=== PATIENT | female | born 1960 | race Caucasian/White ===

== ENCOUNTER 2019-06-13 08:49 | Inpatient (IN) | payer BC, OTHER, SELFPAY ==
[2019-06-13 10:02] LABS: Absolute Lymphocytes (CBC) 0.6 K/uL (0.7-4.9); Basophils % 0.7 % (0-1.3); Hematocrit 34.8 % (36.0-45.0); Lymphocytes % 12.5 % (15.3-44.8); MPV 7.6 fL (7.6-11.3); RBC Red Blood Cell Count 3.84 M/uL (3.86-4.86)
[2019-06-13] MEDS ORDERED: ONDANSETRON 4 MG/2 ML VIAL ONE (10:04)
[2019-06-13] MEDS ORDERED: MORPHINE 4 MG/ML SYR ONE ×2 (10:04→12:02)
[2019-06-13 10:20] LABS: Albumin 3.1 g/dL (3.4-5.0); Bilirubin Direct 0.2 mg/dL (0-0.2); Bilirubin Total 0.5 mg/dL (0.2-1.0); Potassium 3.7 mmol/L (3.5-5.1); Protein, Total 7.8 g/dL (6.4-8.2)
--- NOTE | 2019-06-13 11:14 | RAD REPORT ---
EXAM DESCRIPTION: CTAbdomen Pelvis W Contrast - 06/13/2019 10:53 am CLINICAL HISTORY: Abdominal pain. ABD PAIN COMPARISON: No comparisons TECHNIQUE: Biphasic CT imaging of the abdomen and pelvis was performed with 100 ml non-ionic IV cont rast. All CT scans are performed using dose optimization technique as appropriate and may include automated exposure control or mA/KV adjustment according to patient size. FINDINGS: The lung bases are clear. The liver, spleen, pancreas, left adrenal gland and kidneys are within normal limits. 18 mm right adr enal nodule likely an adenoma. No bowel obstruction, free air, free fluid or abscess. Moderately thickened 8 cm length of sigmoid co veronica in the left lower quadrant is noted which demonstrates inflammatory changes in the surrounding fa t. Numerous diverticula are present in this region. Upstream retention of stool seen in the colon. No peridiverticular abscess seen. The appendix is normal. No evidence of significant lymphadenopathy. No suspicious bony findings. IMPRESSION: Moderate diverticulitis is suspected involving an 8 cm length of sigmoid colon in the le ft lower quadrant. No abscess is identified. After appropriate treatment, it is recommended the patie nt undergo a followup colonoscopy.
[2019-06-13] MEDS ORDERED: CIPROFLOXACIN 400mg IV 400 MG/200 ML BAG IV ONE (12:02)
[2019-06-13] MEDS ORDERED: METRONIDAZOLE 500mg IVPB 500 MG/100 ML BAG IV ONE (12:02)
--- NOTE | 2019-06-13 12:03 | ER ---
Nurse's Notes [facility] Name: Lucille Mortensen Age: 58 yrs Sex: Female : 1960 Arrival Date: 06/13/2019 Time: 08:51 Bed 7 Private MD: Diagnosis: Diverticulitis of large intestine without perforation or abscess without bleeding Presentation: 06/13 09:05 Presenting complaint: Patient states: Constipated 2 weeks ago, used suppositories and jl7 it resolved, 4 days ago started feeling constipated again then last night reports "I felt a pop near my bladder." and reports severe abdominal pain from belly button down since then. also reports pressure in the vagina. Transition of care: patient was not received from another setting of care. Onset of symptoms was June 10, 2019. Risk Assessment: Do you want to hurt yourself or someone else? Patient reports no desire to harm self or others. Initial Sepsis Screen: Does the patient meet any 2 criteria? No. Patient's initial sepsis screen is negative. Does the patient have a suspected source of infection? No. Patient's initial sepsis screen is negative. Care prior to arrival: None. 09:05 Method Of Arrival: Ambulatory jl7 09:05 Acuity: BARBER 3 jl7 Triage Assessment: 09:09 General: Appears in no apparent distress. uncomfortable, ill, well developed, Behavior jl7 is cooperative, appropriate for age, anxious. Pain: Complains of pain in suprapubic area, right lower quadrant and left lower quadrant Pain does not radiate. Pain currently is 10 out of 10 on a pain scale. Quality of pain is described as pressure, Pain began 2-3 days ago. Is continuous. Neuro: Level of Consciousness is awake, alert, obeys commands, Oriented to person, place, time, situation. Cardiovascular: Patient's skin is warm and dry. Respiratory: Airway is patent Respiratory effort is even, unlabored, Respiratory pattern is symmetrical, tachypnea. GI: Abdomen is flat, non-distended, Stools are reported to be constipated. Bowel sounds present X 4 quads. Abd is soft X 4 quads Abdomen is tender to palpation in suprapubic area, right upper quadrant, right lower quadrant and left lower quadrant Guarding noted Reports constipation. : Denies burning with urination. Derm: Skin is pink, warm \\T\\ dry. Historical: - Allergies: 09:09 Sulfa (Sulfonamide Antibiotics); jl7 09:09 Bactrim; jl7 - Home Meds: 09:09 Prozac Oral [Active]; Trazodone Oral [Active]; jl7 - PMHx: 09:09 Depression; jl7 - PSHx: 09:09 Appendectomy; jl7 - Immunization history:: Adult Immunizations unknown. - Social history:: Smoking status: Patient/guardian denies using tobacco, Patient uses alcohol, 2 "Weak" rum and cokes a night. - Ebola Screening: : No symptoms or risks identified at this time. Screenin:30 Abuse screen: Denies threats or abuse. Denies injuries from another. Nutritional jl7 screening: No deficits noted. Tuberculosis screening: No symptoms or risk factors identified. Fall Risk IV access (20 points). Total Crowley Fall Scale indicates No Risk (0-24 pts). Assessment: 09:10 General: See triage assessment. jl7 10:21 Reassessment: pt reports "I haven't peed since before 2 this morning. I feel like I jl7 need to go but I can't." Bladder scan done, 193 in bladder. 11:00 Reassessment: Patient appears in no apparent distress at this time. No changes from jl7 previously documented assessment. Patient and/or family updated on plan of care and expected duration. Pain level reassessed. Patient is alert, oriented x 3, equal unlabored respirations, skin warm/dry/pink. 12:00 Reassessment: Patient appears in no apparent distress at this time. Patient and/or jl7 family updated on plan of care and expected duration. Pain level reassessed. Patient is alert, oriented x 3, equal unlabored respirations, skin warm/dry/pink. Patient states symptoms have improved. 13:00 Reassessment: Patient appears in no apparent distress at this time. Patient and/or jl7 family updated on plan of care and expected duration. Pain level reassessed. Patient is alert, oriented x 3, equal unlabored respirations, skin warm/dry/pink. Vital Signs: 09:09 BP 148 / 91; Pulse 76; Resp 23 S; Temp 98(O); Pulse Ox 100% on R/A; Pain 10/10; jl7 10:30 BP 138 / 97; Pulse 69; Resp 16 S; Pulse Ox 100% on R/A; jl7 10:30 Pain 4/10; jl7 11:52 BP 129 / 78; Pulse 76; Resp 18; Pulse Ox 99% on R/A; Pain 4/10; em1 13:00 BP 135 / 87; Pulse 62; Resp 16 S; Pulse Ox 97% on R/A; jl7 ED Course: 08:51 Patient arrived in ED. as 08:54 Felicia Asher RN is Primary Nurse. jl7 08:56 Paul Chris PA is PHCP. jr8 08:56 Alexandr Hawley MD is Attending Physician. jr8 09:08 Triage completed. jl7 09:09 Arm band placed on right wrist. jl7 09:10 Patient has correct armband on for positive identification. Placed in gown. Bed in low jl7 position. Call light in reach. Side rails up X 1. Pulse ox on. NIBP on. 09:48 Radiology exam delayed due to lab results not completed at this time. (BUN/Creatinine). vm2 09:54 Initial lab(s) drawn, by de, sent to lab. Inserted saline lock: 20 gauge in right em1 antecubital area, using aseptic technique. Blood collected. 10:21 Bladder scan completed. 193. jl7 10:55 CT Abd/Pelvis - IV Contrast Only In Process Unspecified. EDMS 12:02 Milan De Luna DO is Hospitalizing Provider. jr8 13:30 Inserted saline lock: 22 gauge in left hand, using aseptic technique. jl7 13:57 No provider procedures requiring assistance completed. Patient admitted, IV remains in jl7 place. intact, No redness/swelling at site. Administered Medications: 10:10 Drug: Zofran 4 mg Route: IVP; Site: right antecubital; jl7 10:30 Follow up: Response: No adverse reaction; Nausea is decreased jl7 10:12 Drug: morphine 4 mg Route: IVP; Site: right antecubital; jl7 10:30 Follow up: Pain 4/10 Adult; Response: No adverse reaction; Pain is decreased jl7 12:05 Drug: morphine 4 mg Route: IVP; Site: right antecubital; jl7 12:10 Drug: Cipro 400 mg Volume: 200 ml; Route: IVPB; Infused Over: 60 mins; Site: right jl7 antecubital; 12:14 Drug: Flagyl 500 mg Volume: 100 ml; Route: IVPB; Rate: 200 ml/hr; Infused Over: 30 jl7 mins; Site: right antecubital; Outcome: 12:02 Decision to Hospitalize by Provider. lb 13:57 Admitted to Med/surg accompanied by tech, family with patient, via wheelchair, room jl7 430, with chart, Report called to FILI Cid 13:57 Condition: stable 13:57 Discharge instructions given to patient, Instructed on the need for admit, Demonstrated understanding of instructions. 14:25 Patient left the ED. sg Signatures: Dispatcher [facility] EDMS Shan Corado RN Rafia Haro Eric em1 Paul Chris, JOSE GUADALUPE PA jr8 Felicia Asher RN RN jl7 Jayleen Hoffman 2 Corrections: (The following items were deleted from the chart) 10:23 10:21 Reassessment: pt reports "I haven't peed since before 2 this morning. I feel like jl7 I need to go but I can't." Bladder scan done jl7
--- NOTE | 2019-06-13 12:03 | EDPHYS ---
Physician Documentation [facility] Name: Lucille Mortensen Age: 58 yrs Sex: Female : 1960 Arrival Date: 06/13/2019 Time: 08:51 Bed 7 Private MD: ED Physician Alexandr Hawley HPI: 06/13 11:57 This 58 yrs old Female presents to ER via Ambulatory with complaints of jr8 Abdominal Pain. 11:57 The patient presents with abdominal pain right lower quadrant, in the left lower jr8 quadrant. Onset: The symptoms/episode began/occurred acutely, yesterday. The symptoms do not radiate. Associated signs and symptoms: Pertinent positives: nausea. The symptoms are described as constant, crampy. Modifying factors: The symptoms are alleviated by nothing, the symptoms are aggravated by bowel movements. Severity of pain: At its worst the pain was moderate in the emergency department the pain is unchanged. The patient has not experienced similar symptoms in the past. The patient has not recently seen a physician. Stated that she had bout of constipation about one month ago. Took OTC medications and was fine. Started to have what she thought was constipation again about 4 days ago. [place] pop sensation in lower abdomen last night. Since then has had markedly increased pain in lower abdomen . Historical: - Allergies: 09:09 Sulfa (Sulfonamide Antibiotics); jl7 09:09 Bactrim; jl7 - Home Meds: 09:09 Prozac Oral [Active]; Trazodone Oral [Active]; jl7 - PMHx: 09:09 Depression; jl7 - PSHx: 09:09 Appendectomy; jl7 - Immunization history:: Adult Immunizations unknown. - Social history:: Smoking status: Patient/guardian denies using tobacco, Patient uses alcohol, 2 "Weak" rum and cokes a night. - Ebola Screening: : No symptoms or risks identified at this time. ROS: 11:57 Eyes: Negative for injury, pain, redness, and discharge, ENT: Negative for injury, jr8 pain, and discharge, Neck: Negative for injury, pain, and swelling, Cardiovascular: Negative for chest pain, palpitations, and edema, Respiratory: Negative for shortness of breath, cough, wheezing, and pleuritic chest pain, Back: Negative for injury and pain, MS/Extremity: Negative for injury and deformity, Skin: Negative for injury, rash, and discoloration, Neuro: Negative for headache, weakness, numbness, tingling, and seizure. 11:57 Abdomen/GI: Positive for abdominal pain, nausea, constipation, abdominal cramps, Negative for vomiting, diarrhea, abdominal distension, anorexia, dysphagia, hematemesis, black/tarry stool, rectal pain, rectal bleeding, bowel incontinence, flatulence. Exam: 11:57 Eyes: Pupils equal round and reactive to light, extra-ocular motions intact. Lids and jr8 lashes normal. Conjunctiva and sclera are non-icteric and not injected. Cornea within normal limits. Periorbital areas with no swelling, redness, or edema. ENT: Nares patent. No nasal discharge, no septal abnormalities noted. Tympanic membranes are normal and external auditory canals are clear. Oropharynx with no redness, swelling, or masses, exudates, or evidence of obstruction, uvula midline. Mucous membranes moist. Neck: Trachea midline, no thyromegaly or masses palpated, and no cervical lymphadenopathy. Supple, full range of motion without nuchal rigidity, or vertebral point tenderness. No Meningismus. Cardiovascular: Regular rate and rhythm with a normal S1 and S2. No gallops, murmurs, or rubs. Normal PMI, no JVD. No pulse deficits. Respiratory: Lungs have equal breath sounds bilaterally, clear to auscultation and percussion. No rales, rhonchi or wheezes noted. No increased work of breathing, no retractions or nasal flaring. Back: No spinal tenderness. No costovertebral tenderness. Full range of motion. Skin: Warm, dry with normal turgor. Normal color with no rashes, no lesions, and no evidence of cellulitis. MS/ Extremity: Pulses equal, no cyanosis. Neurovascular intact. Full, normal range of motion. Neuro: Awake and alert, GCS 15, oriented to person, place, time, and situation. Cranial nerves II-XII grossly intact. Motor strength 5/5 in all extremities. Sensory grossly intact. Cerebellar exam normal. Normal gait. 11:57 Abdomen/GI: Inspection: abdomen appears normal, Bowel sounds: active, all quadrants, Palpation: soft, in all quadrants, moderate abdominal tenderness, in the right lower quadrant and left lower quadrant, voluntary guarding, is elicited in the right lower quadrant and left lower quadrant, involuntary guarding, is not appreciated, no appreciated organomegaly, Indicators: McBurney's point is not tender, Wylie's sign is negative, Rovsing's sign is negative, Liver: tenderness, is not appreciated. Vital Signs: 09:09 BP 148 / 91; Pulse 76; Resp 23 S; Temp 98(O); Pulse Ox 100% on R/A; Pain 10/10; jl7 10:30 BP 138 / 97; Pulse 69; Resp 16 S; Pulse Ox 100% on R/A; jl7 10:30 Pain 4/10; jl7 11:52 BP 129 / 78; Pulse 76; Resp 18; Pulse Ox 99% on R/A; Pain 4/10; em1 13:00 BP 135 / 87; Pulse 62; Resp 16 S; Pulse Ox 97% on R/A; jl7 MDM: 08:56 Patient medically screened. jr8 12:01 Data reviewed: vital signs, nurses notes, lab test result(s), radiologic studies, CT jr8 scan. Data interpreted: Pulse oximetry: on room air is 99 %. Interpretation: normal. Counseling: I had a detailed discussion with the patient and/or guardian regarding: the historical points, exam findings, and any diagnostic results supporting the discharge/admit diagnosis, lab results, radiology results, the need for further work-up and treatment in the hospital. Physician consultation: Milan DeL una DO was called at 12:02, was contacted at 12:02, regarding admission, to the medical/surgical unit. consult, patient's condition, and will see patient in ED. 06/13 09:42 Order name: Basic Metabolic Panel; Complete Time: 06/13 09:42 Order name: CBC with Diff; Complete Time: :8 06/13 09:42 Order name: Creatinine for Radiology; Complete Time: :8 06/13 09:42 Order name: Hepatic Function; Complete Time: 06/13 09:42 Order name: Lipase; Complete Time: 06/13 11:09 Order name: Urine Dipstick--Ancillary (enter results); Complete Time: 13:08 em1 06/13 09:42 Order name: IV Saline Lock; Complete Time: 09:54 jr8 06/13 09:42 Order name: Labs collected and sent; Complete Time: 09:54 8 06/13 09:48 Order name: CT Abd/Pelvis - IV Contrast Only; Complete Time: 11:52 jr8 06/13 11:09 Order name: Urine Dipstick-Ancillary (obtain specimen); Complete Time: 11:09 em1 Administered Medications: 10:10 Drug: Zofran 4 mg Route: IVP; Site: right antecubital; jl7 10:30 Follow up: Response: No adverse reaction; Nausea is decreased jl7 10:12 Drug: morphine 4 mg Route: IVP; Site: right antecubital; jl7 10:30 Follow up: Pain 4/10 Adult; Response: No adverse reaction; Pain is decreased jl7 12:05 Drug: morphine 4 mg Route: IVP; Site: right antecubital; jl7 12:10 Drug: Cipro 400 mg Volume: 200 ml; Route: IVPB; Infused Over: 60 mins; Site: right jl7 antecubital; 12:14 Drug: Flagyl 500 mg Volume: 100 ml; Route: IVPB; Rate: 200 ml/hr; Infused Over: 30 jl7 mins; Site: right antecubital; Disposition: 14:48 Co-signature as Attending Physician, Alexandr Hawley MD. rn Disposition: 06/13/19 12:02 Hospitalization ordered by Milan De Luna for Inpatient Admission. Preliminary diagnosis is Diverticulitis of large intestine without perforation or abscess without bleeding. - Bed requested for Telemetry/MedSurg (Inpatient). - Status is Inpatient Admission. sg - Condition is Stable. - Problem is new. - Symptoms have improved. UTI on Admission? No Signatures: Dispatcher [employer] EDNikky Leo RN RN dw Shan Corado RN RN sg Alexandr Hawley MD MD rn Martinez, Eric em1 Paul Chris PA PA jr8 Felicia Asher RN RN jl7 Corrections: (The following items were deleted from the chart) 13:32 12:02 Hospitalization Ordered by Milan De Luna DO for Inpatient Admission. Preliminary dw diagnosis is Diverticulitis of large intestine without perforation or abscess without bleeding. Bed requested for Telemetry/MedSurg (Inpatient). Status is Inpatient Admission. Condition is Stable. Problem is new. Symptoms have improved. UTI on Admission? No. jr8 14:25 13:32 06/13/2019 12:02 Hospitalization Ordered by Milan De Luna DO for Inpatient sg Admission. Preliminary diagnosis is Diverticulitis of large intestine without perforation or abscess without bleeding. Bed requested for Telemetry/MedSurg (Inpatient). Status is Inpatient Admission. Condition is Stable. Problem is new. Symptoms have improved. UTI on Admission? No. dw
[2019-06-13 13:03] LABS: Urine Blood TRACE (NEG); Urine Glucose NEGATIVE (NEG); Urine Protein NEGATIVE (NEG)
--- NOTE | 2019-06-13 13:08 | P.HP ---
Certification for Inpatient Patient admitted to: Inpatient With expected LOS: >2 Midnights Patient will require the following post-hospital care: None Practitioner: I am a practitioner with admitting privileges, knowledge of patient current condition, hospital course, and medical plan of care. Services: Services provided to patient in accordance with Admission requirements found in Title 42 Section 412.3 of the Code of Federal Regulations Patient History Date of Service: 06/13/19 Primary Care Provider: Dr. Carlisle Reason for admission: Abdominal pain History of Present Illness: 58-year-old female with history of depression and colon polyps. Patient reported constipation about a month ago. This resolved. Then about 4 days ago she had some episode of constipation but also with abdominal pain. Abdominal pain was diffuse. She rated the pain about a 10/10. Her symptoms did not improve. She reported some chills but no fever. She also had nausea but no vomiting. She came to the ER for further evaluation. In the ER patient was evaluated. White count 5.0, hemoglobin 12. Platelet count 357. Sodium 135, potassium 3.7, BUN of 12, creatinine 0.8 with a GFR 62. Glucose 120. Lipase unremarkable. CT scan revealed moderate diverticulitis to the sigmoid region. No perforation or abscess noted. Patient was given IV antibiotic therapy and pain medication in the ER with some improvement. Patient was admitted for further evaluation and treatment. When I saw the patient ER, she appeared stable. Pain improved with IV pain medication. Patient reports having a colonoscopy about 10 years ago. She was told that she had colon polyps at that time. No mention of history of diverticulitis in the past. Home medications list reviewed: Yes - Past Medical/Surgical History Diabetic: No -: Depression -: Former tobacco use -: Colon polyps -: Appendectomy -: Foot surgery Psychosocial/ Personal History: Patient is single. She has 1 child. - Family History Family History: Reviewed- Non-Contributory - Social History Smoking Status: Former smoker Alcohol use: Yes CD- Drugs: No Caffeine use: Yes Place of Residence: Home Review of Systems General: Chills, As per HPI Eyes: Unremarkable ENT: Unremarkable Respiratory: Unremarkable Cardiovascular: Unremarkable Gastrointestinal: Nausea, Abdominal Pain, Constipation, As per HPI Genitourinary: Unremarkable Musculoskeletal: Unremarkable Integumentary: Unremarkable Neurological: Unremarkable Lymphatics: Unremarkable Physical Examination - Physical Exam General: Alert, In no apparent distress, Oriented x3, Cooperative HEENT: Atraumatic, Normocephalic, PERRLA, Mucous membr. moist/pink Neck: Supple Respiratory: Clear to auscultation bilaterally, Normal air movement Cardiovascular: Normal pulses, Regular rate/rhythm Gastrointestinal: Normal bowel sounds, Soft and benign, Non-distended, No masses , No rebound, No guarding, Tenderness (Abdominal pain noted to lower abdominal region.) Musculoskeletal: No erythema, No tenderness, No warmth Integumentary: No tenderness/swelling, No erythema, No warmth, No cyanosis Neurological: Normal speech, Normal strength at 5/5 x4 extr, Normal tone, Normal affect - Studies Laboratory Data (last 24 hrs) 06/13/19 09:50: Creatinine 0.89 06/13/19 09:50: WBC 5.0, Hgb 12.0, Hct 34.8 L, Plt Count 357 06/13/19 09:50: Sodium 135 L, Potassium 3.7, BUN 12, Creatinine 0.92, Glucose 120 H, Total Bilirubin 0.5, AST 15, ALT 14, Alkaline Phosphatase 100, Lipase 105 Assessment and Plan - Plan Impression: Abdominal pain secondary to acute sigmoid diverticulitis Hyponatremia likely from dehydration Depression Plan: Abdominal pain secondary to acute sigmoid diverticulitis: Patient will be admitted for further evaluation and treatment. Will obtain blood cultures. Will continue IV Cipro and Flagyl. Will have pharmacy monitor and adjust appropriately. Will start DVT prophylaxis-Lovenox. Will provide IV pain medication and IV fluids. Will keep the patient NPO at this time. Will consult surgery to further evaluate and monitor. Anticipate improvement. Once the patient's pain has significantly improved then will transition to fluid diet then advance as tolerated. Patient will require colonoscopy in 4-6 weeks after hospitalization. Anticipate improvement over the next 3-5 days. Hyponatremia likely from dehydration: Will continue with IV fluids. Will monitor and address appropriately. Replacement protocol in place. Depression: Will continue with her oral medication once taking good oral intake. Discharge Plan: Home Plan to discharge in: Greater than 2 days - Advance Directives Does patient have a Living Will: No Does patient have a Durable POA for Healthcare: No - Code Status/Comfort Care Code Status Assessed: Yes (Patient is full code) Time Spent Managing Pts Care (In Minutes): 55
[2019-06-13] MEDS ORDERED: ONDANSETRON 4 MG/2 ML VIAL IV PRN (13:56)
[2019-06-13] MEDS ORDERED: ACETAMINOPHEN 500 MG TAB PO PRN (13:56)
[2019-06-13] MEDS ORDERED: MORPHINE 2 MG/ML SYR IV PRN (13:56)
[2019-06-13] MEDS ORDERED: ACETAMINOPHEN 650MG/RECT SUPP PR PRN (13:56)
[2019-06-13] MEDS: NA CHLORIDE 0.9% 1,000 ML IV SCH (14:25)
[2019-06-13 14:47] VITALS: BMI 23.0
[2019-06-13] MEDS: METRONIDAZOLE 500mg IVPB 500 MG/100 ML BAG IV SCH (16:17)
[2019-06-13] MEDS: CIPROFLOXACIN 400mg IV 400 MG/200 ML BAG IV SCH (21:27)
[2019-06-14] MEDS: NA CHLORIDE 0.9% 1,000 ML IV SCH ×2 (00:34→08:59)
[2019-06-14] MEDS: METRONIDAZOLE 500mg IVPB 500 MG/100 ML BAG IV SCH ×3 (04:45→16:20)
[2019-06-14 06:46] LABS: Absolute Lymphocytes (CBC) 1.3 K/uL (0.7-4.9); Hematocrit 30.9 % (36.0-45.0); Lymphocytes % 34.5 % (15.3-44.8); RBC Red Blood Cell Count 3.31 M/uL (3.86-4.86)
[2019-06-14 07:03] LABS: Magnesium 2.2 mg/dL (1.8-2.4); Potassium 3.6 mmol/L (3.5-5.1)
[2019-06-14] MEDS: ENOXAPARIN 40 MG/0.4 ML SQ SCH (08:56)
[2019-06-14] MEDS: CIPROFLOXACIN 400mg IV 400 MG/200 ML BAG IV SCH ×2 (08:56→20:04)
--- NOTE | 2019-06-14 12:37 | P.PN ---
Subjective Date of Service: 06/14/19 Primary Care Provider: Dr. Carlisle Chief Complaint: Abdominal pain Subjective: Improving, Doing well, Other (No significant abdominal pain noted today. Passage of gas noted. No BM.) Physical Examination - Vital Signs Temperature: 98.2 F Blood Pressure: 122/72 Pulse: 65 Respirations: 16 Pulse Ox (%): 99 - Physical Exam General: Alert, In no apparent distress, Oriented x3, Cooperative HEENT: Atraumatic Neck: Supple Respiratory: Clear to auscultation bilaterally, Normal air movement Cardiovascular: Normal pulses, Regular rate/rhythm Gastrointestinal: Normal bowel sounds, Soft and benign, Non-distended, No tenderness, No masses, No rebound, No guarding Musculoskeletal: No erythema, No tenderness, No warmth Neurological: Normal speech, Normal strength at 5/5 x4 extr, Normal tone, Normal affect Assessment & Plan Discharge Plan: Home Plan to discharge in: 24 Hours Physician Review Additional Text: Impression: Abdominal pain secondary to acute sigmoid diverticulitis Hyponatremia likely from dehydration Depression Plan: Abdominal pain secondary to acute sigmoid diverticulitis: Patient continues to improve. Continue IV Cipro and Flagyl. Will advance diet to clear liquid. Will advance slowly to GI soft. Anticipate discharge within the next 24-48 hr. Encourage ambulation. Patient will require colonoscopy in 4-6 weeks after hospitalization. Hyponatremia likely from dehydration: Will continue with IV fluids. Will monitor and address appropriately. Replacement protocol in place. Depression: Restart home medication. Time Spent Managing Pts Care (In Minutes): 55
[2019-06-14] MEDS: NACHLORIDE 0.45% 1,000 ML IV SCH ×2 (13:26→23:00)
[2019-06-14] MEDS ORDERED: POTASSIUM CL SA 10 MEQ TAB PO ONE (14:54)
--- NOTE | 2019-06-14 16:47 | CON ---
Reason For Consultation: Acute sigmoid diverticulitis. History Of Present Illness: Patient is a 58-year-old female, who presents with 4 to 5 day history of diffuse abdominal pain associated with constipation and now the pain was on the left side. She had some chills but no fever. No blood in her stool. No dysuria or hematuria. No sore throat, runny no se, cough, headaches, or dizziness. No chest pain. No fever or chills. She did have a similar epis ode in April, was treated with antibiotics. She has not recently had a colonoscopy, she was advi sed for that and she has not followed up. family history of colorectal malignancy. Review of Systems: Otherwise unremarkable. Past Medical History: Rheumatoid arthritis. Depression. Past Surgical History: Appendectomy. Please note patient did have colonoscopy about 10 years ago. Had polyps. Allergies: SHE IS ALLERGIC TO SULFA. Family History: Significant for breast cancer. Cancer in a brother of unknown type. Heart disease in the father. Physical Examination: Vital Signs: Stable. She is afebrile. She is awake, alert, oriented x3. Head and Neck: Cranial nerves 2 through 12 are grossly within normal limits. No neck masses. No JV D. Throat clear. Neck is supple. Chest: Clear. Heart: S1, S2. Abdomen: Soft, nondistended. Positive bowel sounds. Minimal tenderness in the left lower quadrant. No rebound, rigidity, or guarding. Extremities: Adequately perfused. Nontender. Neuro: Nonfocal. Laboratory Data: White count on admission was 5 with a left shift. Today is 3.8 with neutrophil per cent of 46. Chemistry reviewed, essentially unremarkable today. Procalcitonin was less than 0.[address] of the abdomen and pelvis reviewed, shows 8 cm length of sigmoid colon in the left lower quadrant with inflammatory changes in the surrounding fat. There is no obstruction, free air or fluid or absc ess. No significant lymphadenopathy. Assessment: Acute sigmoid diverticulitis. Recommendations: IV antibiotics currently. Then, oral antibiotics for 2 weeks and then colonoscopy in 4 to 6 weeks and then a referral to a colorectal surgeon for segmental colectomy. Plan of care discussed in detail with the patient. 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 /MODL Voice ID: [id number] Report ID: [id number]
[2019-06-14] MEDS ORDERED: FLUOXETINE 10 MG CAP PO SCH (21:00)
[2019-06-14] MEDS ORDERED: TRAZODONE 50 MG TABLET PO SCH (21:00)
[2019-06-15] MEDS: METRONIDAZOLE 500mg IVPB 500 MG/100 ML BAG IV SCH ×2 (00:29→07:58)
[2019-06-15] MEDS: NACHLORIDE 0.45% 1,000 ML IV SCH (00:32)
[2019-06-15] MEDS ORDERED: LEVOTHYROXINE SOD 0.075 MG TAB PO SCH (06:30)
[2019-06-15 06:36] LABS: Absolute Lymphocytes (CBC) 1.7 K/uL (0.7-4.9); Basophils % 1.3 % (0-1.3); Hematocrit 31.5 % (36.0-45.0); Lymphocytes % 46.1 % (15.3-44.8); MPV 7.9 fL (7.6-11.3); RBC Red Blood Cell Count 3.42 M/uL (3.86-4.86)
[2019-06-15 06:54] LABS: Magnesium 2.4 mg/dL (1.8-2.4); Potassium 3.6 mmol/L (3.5-5.1)
[2019-06-15] MEDS ORDERED: POTASSIUM CL SA 10 MEQ TAB PO ONE (07:18)
[2019-06-15] MEDS: ENOXAPARIN 40 MG/0.4 ML SQ SCH (07:58)
[2019-06-15 08:04] VITALS: O2SAT 96
[2019-06-15 08:15] VITALS: BP 133/78; TEMP 97.8
--- NOTE | 2019-06-15 08:37 | P.DS ---
Admission Date: 06/13/19 Discharge Date: 06/15/19 Primary Care Provider: Dr. Carlisle Disposition: ROUTINE DISCHARGE Discharge Condition: GOOD Reason for Admission: Abdominal pain Consultations: Surgery-Dr. Jain Procedures: CT scan: FINDINGS: The lung bases are clear. The liver, spleen, pancreas, left adrenal gland and kidneys are within normal limits. 18 mm right adrenal nodule likely an adenoma. No bowel obstruction, free air, free fluid or abscess. Moderately thickened 8 cm length of sigmoid colon in the left lower quadrant is noted which demonstrates inflammatory changes in the surrounding fat. Numerous diverticula are present in this region. Upstream retention of stool seen in the colon. No peridiverticular abscess seen. The appendix is normal. No evidence of significant lymphadenopathy. No suspicious bony findings. IMPRESSION: Moderate diverticulitis is suspected involving an 8 cm length of sigmoid colon in the left lower quadrant. No abscess is identified. Medical Problem List: Abdominal pain secondary to acute recurrent sigmoid diverticulitis Hyponatremia likely from dehydration 18 mm right adrenal nodule likely benign adenoma Depression Hypothyroidism Anemia likely dilutional Brief History of Present Illness: 58-year-old female with history of depression and colon polyps. Patient reported constipation about a month ago. This resolved. Then about 4 days ago she had some episode of constipation but also with abdominal pain. Abdominal pain was diffuse. She rated the pain about a 10/10. Her symptoms did not improve. She reported some chills but no fever. She also had nausea but no vomiting. She came to the ER for further evaluation. In the ER patient was evaluated. White count 5.0, hemoglobin 12. Platelet count 357. Sodium 135, potassium 3.7, BUN of 12, creatinine 0.8 with a GFR 62. Glucose 120. Lipase unremarkable. CT scan revealed moderate diverticulitis to the sigmoid region. No perforation or abscess noted. Patient was given IV antibiotic therapy and pain medication in the ER with some improvement. Patient was admitted for further evaluation and treatment. When I saw the patient ER, she appeared stable. Pain improved with IV pain medication. Patient reports having a colonoscopy about 10 years ago. She was told that she had colon polyps at that time. Patient reported history of diverticulitis in the past. Hospital Course: Patient presented with abdominal pain. CT revealed moderate diverticulitis involving 8 cm length of sigmoid colon in the left lower quadrant. No abscess identified. Patient was admitted for further evaluation and treatment. Patient seen and evaluated by surgery. Patient reported history of diverticulitis in the past. Patient did well during the course of her stay with IV fluids and antibiotic therapy. With improvement, her diet was advanced. At discharge she is without any significant abdominal pain, nausea vomiting. At discharge she will continue with a GI soft diverticular diet. Patient will continue with Cipro 500 mg twice daily and Flagyl 500 mg 3 times a day for 2 weeks. Patient will also be given stool softener-docusate 100 mg daily. Recommend follow up with surgery in 1-2 weeks to follow up this hospitalization. Patient will require colonoscopy with a GI consultation in 4-6 weeks. Due to her recurrent diverticulitis and age, surgery of recommended the possibility of colectomy with colorectal surgery in the future. Patient understands plan of care. Incidental finding of 18 mm right adrenal nodule likely benign adenoma noted on CT scan. This can be followed up by her PCP. Patient with hyponatremia likely from dehydration. This improved with IV fluids. Patient with mild anemia. This is likely dilutional in nature. Recommend to recheck lab-CBC in 2-4 weeks to monitor progress. Patient will have colonoscopy in 4-6 weeks. Patient with underlying depression. At discharge she will continue with her medications-Prozac 60 mg daily and trazodone 50 mg daily Patient with hypothyroidism. At discharge she will continue with her medication -levothyroxine 150 mcg daily. Vital Signs/Physical Exam: Temp Pulse Resp BP Pulse Ox 97.8 F 67 16 133/78 96 06/15/19 08:00 06/15/19 08:00 06/15/19 08:00 06/15/19 08:00 06/15/19 08:00 General: Alert, In no apparent distress, Oriented x3, Cooperative HEENT: Atraumatic Neck: Supple Respiratory: Clear to auscultation bilaterally, Normal air movement Cardiovascular: Normal pulses, Regular rate/rhythm Gastrointestinal: Normal bowel sounds, Soft and benign, Non-distended, No tenderness, No masses, No rebound, No guarding Musculoskeletal: No erythema, No tenderness, No warmth Integumentary: No tenderness/swelling, No erythema, No warmth, No cyanosis Neurological: Normal speech, Normal strength at 5/5 x4 extr, Normal tone, Normal affect Laboratory Data at Discharge: WBC 3.6 K/uL (4.3-10.9) L 06/15/19 05:52 Hgb 10.9 g/dL (12.0-15.0) L 06/15/19 05:52 Hct 31.5 % (36.0-45.0) L 06/15/19 05:52 Plt Count 317 K/uL (152-406) 06/15/19 05:52 Sodium 141 mmol/L (136-145) 06/15/19 05:52 Potassium 3.6 mmol/L (3.5-5.1) 06/15/19 05:52 BUN 4 mg/dL (7-18) L 06/15/19 05:52 Creatinine 0.72 mg/dL (0.55-1.3) 06/15/19 05:52 Glucose 98 mg/dL (74-106) 06/15/19 05:52 Magnesium 2.4 mg/dL (1.8-2.4) 06/15/19 05:52 Total Bilirubin 0.5 mg/dL (0.2-1.0) 06/13/19 09:50 AST 15 U/L (15-37) 06/13/19 09:50 ALT 14 U/L (12-78) 06/13/19 09:50 Alkaline Phosphatase 100 U/L (45-117) 06/13/19 09:50 Lipase 105 U/L (73-393) 06/13/19 09:50 Home Medications: Fluoxetine HCl [Prozac*] 60 mg PO BEDTIME 06/13/19 Levothyroxine Sodium 150 mcg PO 0600 06/13/19 Trazodone HCl 50 mg PO BEDTIME 06/13/19 Ciprofloxacin HCl [Cipro 500 MG Tablet] 500 mg PO BID #28 tab 06/15/19 Docusate [Colace Cap*] 100 mg PO DAILY #30 cap 06/15/19 metroNIDAZOLE [Flagyl] 500 mg PO Q8H #42 tablet 06/15/19 New Medications: Ciprofloxacin HCl [Cipro 500 MG Tablet] 500 mg PO BID #28 tab Docusate [Colace Cap*] 100 mg PO DAILY #30 cap metroNIDAZOLE [Flagyl] 500 mg PO Q8H #42 tablet Patient Discharge Instructions: 1. Recommend follow up with her PCP in 1-2 weeks to follow up hospitalization. 2. Patient presented with abdominal pain. CT revealed moderate diverticulitis involving 8 cm length of sigmoid colon in the left lower quadrant. No abscess identified. Patient was admitted for further evaluation and treatment. Patient seen and evaluated by surgery. Patient reported history of diverticulitis in the past. Patient did well during the course of her stay with IV fluids and antibiotic therapy. With improvement, her diet was advanced. At discharge she is without any significant abdominal pain, nausea vomiting. At discharge she will continue with a GI soft diverticular diet. Patient will continue with Cipro 500 mg twice daily and Flagyl 500 mg 3 times a day for 2 weeks. Patient will also be given stool softener-docusate 100 mg daily. Recommend follow up with surgery in 1-2 weeks to follow up this hospitalization. Patient will require colonoscopy with a GI consultation in 4-6 weeks. Due to her recurrent diverticulitis and age, surgery of recommended the possibility of colectomy with colorectal surgery in the future. Patient understands plan of care. 3. Incidental finding of 18 mm right adrenal nodule likely benign adenoma noted on CT scan. This can be followed up by her PCP. 4. Patient with hyponatremia likely from dehydration. This improved with IV fluids. 5. Patient with mild anemia. This is likely dilutional in nature. Recommend to recheck lab-CBC in 2-4 weeks to monitor progress. Patient will have colonoscopy in 4-6 weeks. 6. Patient with underlying depression. At discharge she will continue with her medications -Prozac 60 mg daily and trazodone 50 mg daily. 7. Patient with hypothyroidism. At discharge she will continue with her medication- levothyroxine 150 mcg daily. Diet: GI soft diverticular diet Activity: Ad jagdeep Time spent managing pt's care (in minutes): 55
[2019-06-15] MEDS: CIPROFLOXACIN 400mg IV 400 MG/200 ML BAG IV SCH (08:47)
[2019-06-15] MEDS ORDERED: DOCUSATE NA 100 MG CAP PO SCH (09:00)
[2019-06-15 12:15] LABS: Platelet Estimate ADEQ
[2019-06-15 12:16] LABS: Blood Morphology Comment NOT SEEN (NOT SEEN)
--- NOTE | 2019-06-15 12:19 | PN ---
Date of Progress Note: 06/15/2019 Patient is awake and alert. No complaints. Vital signs stable, afebrile. Patient is tolerating a l ow-fiber diet. Abdomen is completely benign. Assessment: Acute sigmoid diverticulitis. Recommendations: Patient cleared for discharge. Follow up with the GI service for outpatient colono scopy in 4 to 6 weeks and I would recommend that she would get a segmental colon resection. Primary care discussed with Dr. De Luna. TIN/JUAN ALBERTO Voice ID: [id number] Report ID: [id number]
== END 2019-06-15 11:35 | disposition home or self-care (01) | DRG 392 ==
LOC: ER 08:49 → ERHOLD 12:58 → 4TH 13:54
PROVIDERS: ADMIT Family Medicine; ATTEND Family Medicine
DX: K57.32 Diverticulitis of large intestine without perforation or abscess without bleeding (principal); E87.1 Hypo-osmolality and hyponatremia; E86.0 Dehydration; D35.01 Benign neoplasm of right adrenal gland; F32.9 Major depressive disorder, single episode, unspecified; E03.9 Hypothyroidism, unspecified; D64.9 Anemia, unspecified; Z88.2 Allergy status to sulfonamides
CPT/HCPCS: 36415; 74177; 80048; 80076; 81003; 83690; 83735; 84145; 85025; 87040; 96374; 96375; 99285; J0744; J1650; J2270; J2405; J7030; Q9967

== ENCOUNTER 2019-10-20 14:40 | Emergency (ER) | payer BC ==
[2019-10-20] MEDS ORDERED: CIPROFLOXACIN 400mg IV 400 MG/200 ML BAG IV ONE (16:43)
[2019-10-20] MEDS ORDERED: MORPHINE 2 MG/ML SYR ONE ×2 (16:43→19:55)
[2019-10-20] MEDS ORDERED: ONDANSETRON 4 MG/2 ML VIAL ONE (16:43)
[2019-10-20] MEDS ORDERED: NA CHLORIDE 0.9% 1,000 ML ONE (16:43)
[2019-10-20] MEDS ORDERED: METRONIDAZOLE 500mg IVPB 500 MG/100 ML BAG IV ONE (16:43)
[2019-10-20 17:51] LABS: Absolute Lymphocytes (CBC) 1.3 K/uL (0.7-4.9); Basophils % 0.7 % (0-1.3); Hematocrit 33.1 % (36.0-45.0); Lymphocytes % 28.7 % (15.3-44.8); MPV 7.7 fL (7.6-11.3)
[2019-10-20 17:52] LABS: Albumin 2.7 g/dL (3.4-5.0); Bilirubin Direct 0.1 mg/dL (0-0.2); Bilirubin Total 0.4 mg/dL (0.2-1.0); Potassium 3.2 mmol/L (3.5-5.1); Protein, Total 7.3 g/dL (6.4-8.2)
[2019-10-20] MEDS ORDERED: NS KCL 20MEQ 1,000 ML IV ONE (19:10)
--- NOTE | 2019-10-20 19:29 | EDPHYS ---
Physician Documentation [facility] Name: Lucille Mortensen Age: 58 yrs Sex: Female : 1960 Arrival Date: 10/20/2019 Time: 14:42 Bed 7 Private MD: Nhan Soliz ED Physician Britton Oliveira HPI: 10/19 16:32 This 58 yrs old Female presents to ER via Ambulatory with complaints of Post gautam Surgical Pain, Rectal Pain. 16:32 The patient presents to the emergency department with pain in the rectal area. gautam 16:33 The patient presents with abdominal pain in the lower abdomen, in the left lower gautam quadrant, abdominal distention in the upper abdomen, in the lower abdomen. Onset: The symptoms/episode began/occurred 3 day(s) ago. Onset: The symptoms/episode began/occurred 3 day(s) ago. Context: the patient is post surgical, on October 14, 2019. Modifying factors: The symptoms are alleviated by remaining still, The symptoms are aggravated by movement. Modifying factors: The symptoms are alleviated by nothing, the symptoms are aggravated by movement, nothing. pressure, touching the area, walking. Historical: - Allergies: 14:50 Bactrim; ss 14:50 Sulfa (Sulfonamide Antibiotics); ss - PMHx: 14:50 Depression; ss - PSHx: 14:50 Appendectomy; colon resection; ss - Immunization history:: Adult Immunizations up to date. - Social history:: Smoking status: Patient denies any tobacco usage or history of. - Family history:: not pertinent. ROS: 16:33 Constitutional: Negative for fever, chills, and weight loss, Eyes: Negative for injury, gautam pain, redness, and discharge, ENT: Negative for injury, pain, and discharge, Neck: Negative for injury, pain, and swelling, Cardiovascular: Negative for chest pain, palpitations, and edema, Respiratory: Negative for shortness of breath, cough, wheezing, and pleuritic chest pain, Back: Negative for injury and pain, : Negative for injury, bleeding, discharge, and swelling, MS/Extremity: Negative for injury and deformity, Skin: Negative for injury, rash, and discoloration, Neuro: Negative for headache, weakness, numbness, tingling, and seizure, Psych: Negative for depression, anxiety, suicide ideation, homicidal ideation, and hallucinations, Allergy/Immunology: Negative for hives, rash, and allergies, Endocrine: Negative for neck swelling, polydipsia, polyuria, polyphagia, and marked weight changes, Hematologic/Lymphatic: Negative for swollen nodes, abnormal bleeding, and unusual bruising. 16:33 Abdomen/GI: Positive for abdominal pain, of the left lower quadrant. Exam: 16:33 Constitutional: This is a well developed, well nourished patient who is awake, alert, gautam and in no acute distress. Head/Face: Normocephalic, atraumatic. Eyes: Pupils equal round and reactive to light, extra-ocular motions intact. Lids and lashes normal. Conjunctiva and sclera are non-icteric and not injected. Cornea within normal limits. Periorbital areas with no swelling, redness, or edema. ENT: Nares patent. No nasal discharge, no septal abnormalities noted. Tympanic membranes are normal and external auditory canals are clear. Oropharynx with no redness, swelling, or masses, exudates, or evidence of obstruction, uvula midline. Mucous membranes moist. Neck: Trachea midline, no thyromegaly or masses palpated, and no cervical lymphadenopathy. Supple, full range of motion without nuchal rigidity, or vertebral point tenderness. No Meningismus. Chest/axilla: Normal chest wall appearance and motion. Nontender with no deformity. No lesions are appreciated. Cardiovascular: Regular rate and rhythm with a normal S1 and S2. No gallops, murmurs, or rubs. Normal PMI, no JVD. No pulse deficits. Respiratory: Lungs have equal breath sounds bilaterally, clear to auscultation and percussion. No rales, rhonchi or wheezes noted. No increased work of breathing, no retractions or nasal flaring. Back: No spinal tenderness. No costovertebral tenderness. Full range of motion. Female : Normal external genitalia. Skin: Warm, dry with normal turgor. Normal color with no rashes, no lesions, and no evidence of cellulitis. MS/ Extremity: Pulses equal, no cyanosis. Neurovascular intact. Full, normal range of motion. Neuro: Awake and alert, GCS 15, oriented to person, place, time, and situation. Cranial nerves II-XII grossly intact. Motor strength 5/5 in all extremities. Sensory grossly intact. Cerebellar exam normal. Normal gait. Psych: Awake, alert, with orientation to person, place and time. Behavior, mood, and affect are within normal limits. 16:33 Abdomen/GI: Inspection: distension, that is moderate, Bowel sounds: active, Palpation: moderate abdominal tenderness, in the umbilical area, left upper quadrant and left lower quadrant, Liver: no appreciated palpable abnormalities, Hernia: not appreciated. Vital Signs: 14:48 BP 113 / 90; Pulse 84; Resp 20; Temp 99.0; Pulse Ox 100% on R/A; Weight 62.6 kg; Height ss 5 ft. 6 in. (167.64 cm); Pain 8/10; 17:33 BP 133 / 74; Pulse 63; Resp 18; Pulse Ox 99% on R/A; Pain 10/10; em 19:08 BP 130 / 83; Pulse 78; Resp 18; Pulse Ox 99% on R/A; Pain 7/10; em 20:56 BP 115 / 63; Pulse 64; Resp 18; Pulse Ox 95% on R/A; tl2 14:48 Body Mass Index 22.27 (62.60 kg, 167.64 cm) MDM: 15:36 Patient medically screened. [facility] 16:33 Data reviewed: vital signs, nurses notes, lab test result(s), EKG, radiologic studies. [facility] 10/19 16:31 Order name: Basic Metabolic Panel; Complete Time: 18:01 [facility] 10/19 16:31 Order name: CBC with Diff [facility] 10/19 16:31 Order name: Creatinine for Radiology; Complete Time: 18:01 [facility] 10/19 16:31 Order name: Hepatic Function; Complete Time: 18:01 [facility] 10/19 16:31 Order name: Lipase; Complete Time: 18:01 [facility] 10/19 16:31 Order name: Urine Culture [facility] 10/19 16:31 Order name: CT Abd/Pelvis - PO and IV Contrast [facility] 10/19 17:44 Order name: Urine Dipstick--Ancillary (enter results) 10/19 17:55 Order name: CBC Smear Scan [facility] 10/19 16:31 Order name: IV Saline Lock; Complete Time: 17:17 [facility] 10/19 16:31 Order name: Labs collected and sent; Complete Time: 17:17 [facility] 10/19 16:31 Order name: Urine Dipstick-Ancillary (obtain specimen); Complete Time: 17:17 gautam Administered Medications: 17:35 Drug: NS 0.9% 1000 ml Route: IV; Rate: 1 bolus; Site: left antecubital; em 18:47 Follow up: IV Status: Completed infusion; IV Intake: 1000ml em 17:35 Drug: Zofran (Ondansetron) 4 mg Route: IVP; Site: left antecubital; em 18:47 Follow up: Response: No adverse reaction em 17:37 Drug: morphine 2 mg Route: IVP; Site: left antecubital; em 18:47 Follow up: Response: No adverse reaction; Marked relief of symptoms; Pain is decreased em 17:41 Drug: Flagyl 500 mg Volume: 100 ml; Route: IVPB; Rate: 200 ml/hr; Infused Over: 30 em mins; Site: left antecubital; 18:40 Follow up: Response: No adverse reaction; IV Status: Completed infusion; IV Intake: sv 100ml 19:03 Drug: Cipro 400 mg Volume: 200 ml; Route: IVPB; Infused Over: 60 mins; Site: right em antecubital; 20:00 Follow up: IV Status: Completed infusion tl2 19:56 Drug: morphine 2 mg Route: IVP; Site: left antecubital; sg 20:40 Follow up: Response: No adverse reaction; RASS: Alert and Calm (0) tl2 20:20 Drug: NS 0.9% with KCl 20 mEq/L 1000 ml Route: IV; Rate: 125 ml/hr; Site: left tl2 antecubital; 21:13 Follow up: IV Status: Infusion continued upon transfer tl2 20:20 Drug: Zosyn 3.375 grams Route: IVPB; Infused Over: 60 mins; Site: left antecubital; tl2 21:13 Follow up: IV Status: Infusion continued upon transfer tl2 21:12 Drug: morphine 4 mg Route: IVP; Site: left antecubital; tl2 21:14 Follow up: Response: No adverse reaction; Medication administered at discharge. tl2 Disposition: 10/20/19 19:28 Transfer ordered to Other Acute Care Facility. Diagnosis is Abdominal tenderness - bilateral pelvic abscesse s/p bowel resection. - Reason for transfer: Higher level of care. - Accepting physician is hyun mcclellan. - Condition is Stable. - Problem is new. - Symptoms have improved. Signatures: Dispatcher [employer] Shan Sandoval RN RN Britton Blank MD MD cha Munoz, Edgar, RN RN Bhavana Dickens RN RN ss Tova Morelos RN RN tl2 Audra Mathews RN sv Corrections: (The following items were deleted from the chart) 19:57 19:28 10/20/2019 19:28 Transfer ordered to [facility]. Diagnosis is Abdominal gautam tenderness - bilateral pelvic abscesse s/p bowel resection. Reason for transfer: Higher level of care. Accepting physician is hyun mcclellan. Condition is Stable. Problem is new. Symptoms have improved. gautam 21:22 19:57 10/20/2019 19:28 Transfer ordered to Other Acute Care Facility. Diagnosis is sg Abdominal tenderness - bilateral pelvic abscesse s/p bowel resection. Reason for transfer: Higher level of care. Accepting physician is hyun mcclellan. Condition is Stable. Problem is new. Symptoms have improved. gautam
--- NOTE | 2019-10-20 19:29 | ER ---
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 Pt began ss experiencing rectal pain that began 3-4 days ago and became much worse yesterday evening. Coronavirus screen: The patient has NOT traveled to a country currently being monitored by the [facility] within the last 14 days. Ebola Screen: Patient denies exposure to infectious person. Patient denies travel to an Ebola-affected area in the 21 days before illness onset. Initial Sepsis Screen: Does the patient meet any 2 criteria? No. Patient's initial sepsis screen is negative. Does the patient have a suspected source of infection? No. Patient's initial sepsis screen is negative. Risk Assessment: Do you want to hurt yourself or someone else? Patient reports no desire to harm self or others. 14:48 Method Of Arrival: Ambulatory ss 14:48 Acuity: BARBER 3 ss Historical: - Allergies: 14:50 Bactrim; ss 14:50 Sulfa (Sulfonamide Antibiotics); ss - PMHx: 14:50 Depression; ss - PSHx: 14:50 Appendectomy; colon resection; ss - Immunization history:: Adult Immunizations up to date. - Social history:: Smoking status: Patient denies any tobacco usage or history of. - Family history:: not pertinent. Screenin:30 Abuse screen: Denies threats or abuse. Nutritional screening: No deficits noted. em Tuberculosis screening: No symptoms or risk factors identified. Fall Risk None identified. Assessment: 16:30 General: Appears in no apparent distress. uncomfortable, Behavior is calm, cooperative, em Denies fever. Pain: Complains of pain in left upper quadrant and umbilical area and left lower quadrant Pain currently is 10 out of 10 on a pain scale. Neuro: Level of Consciousness is awake, alert, obeys commands, Oriented to person, place, time, situation, Appropriate for age. Cardiovascular: Capillary refill < 3 seconds Patient's skin is warm and dry. Respiratory: Airway is patent Respiratory effort is even, unlabored, Respiratory pattern is regular, symmetrical. GI: Abdomen is flat, bruised on umbilical area, right upper quadrant, right lower quadrant and left lower quadrant Bowel sounds present X 4 quads. Reports lower abdominal pain, constipation, nausea, vomiting, Patient currently denies diarrhea, rectal bleeding. : Denies burning with urination. Derm: Skin is intact, is healthy with good turgor, Skin is pink, warm \T\ dry. Musculoskeletal: Capillary refill < 3 seconds, Range of motion: intact in all extremities. 16:45 Reassessment: finished drinking PO contrast, tolerated well, CT dept. notified. em 17:30 Reassessment: Patient appears in no apparent distress at this time. Patient and/or em family updated on plan of care and expected duration. Pain level reassessed. Patient is alert, oriented x 3, equal unlabored respirations, skin warm/dry/pink. 18:11 Reassessment: Patient appears in no apparent distress at this time. Patient and/or em family updated on plan of care and expected duration. Pain level reassessed. Patient is alert, oriented x 3, equal unlabored respirations, skin warm/dry/pink. rates pain 7/10. 18:46 Reassessment: Patient appears in no apparent distress at this time. wheeled to CT via em wheelchair. 19:20 Reassessment: Patient appears in no apparent distress at this time. Patient and/or tl2 family updated on plan of care and expected duration. Pain level reassessed. Patient is alert, oriented x 3, equal unlabored respirations, skin warm/dry/pink. General: Appears in no apparent distress. uncomfortable, Behavior is calm, cooperative. Pain: Complains of pain in right lower quadrant and right upper quadrant and left upper quadrant and left lower quadrant. Cardiovascular: Denies chest pain. Respiratory: Airway is patent Respiratory effort is even, unlabored, Respiratory pattern is regular, symmetrical. GI: Abdomen is flat, Bowel sounds present X 4 quads. Reports lower abdominal pain, constipation, nausea. : No signs and/or symptoms were reported regarding the genitourinary system. Derm: Skin is pink, warm \T\ dry. 20:00 Reassessment: Patient appears in no apparent distress at this time. Patient and/or tl2 family updated on plan of care and expected duration. Pain level reassessed. Patient is alert, oriented x 3, equal unlabored respirations, skin warm/dry/pink. updated pt on plans to transfer. 21:00 Reassessment: Patient appears in no apparent distress at this time. Patient and/or tl2 family updated on plan of care and expected duration. Pain level reassessed. Patient is alert, oriented x 3, equal unlabored respirations, skin warm/dry/pink. Awaiting transport, morphine on hold to give right before transport. Vital Signs: 14:48 BP 113 / 90; Pulse 84; Resp 20; Temp 99.0; Pulse Ox 100% on R/A; Weight 62.6 kg; Height ss 5 ft. 6 in. (167.64 cm); Pain 8/10; 17:33 BP 133 / 74; Pulse 63; Resp 18; Pulse Ox 99% on R/A; Pain 10/10; em 19:08 BP 130 / 83; Pulse 78; Resp 18; Pulse Ox 99% on R/A; Pain 7/10; em 20:56 BP 115 / 63; Pulse 64; Resp 18; Pulse Ox 95% on R/A; tl2 14:48 Body Mass Index 22.27 (62.60 kg, 167.64 cm) ss ED Course: 14:42 Patient arrived in ED. rg4 14:42 Nhan Soliz MD is Private Physician. rg4 14:50 Triage completed. ss 14:50 Arm band placed on right wrist. ss 15:21 Chris Justice, FILI is Primary Nurse. em 15:36 Britton Oliveira MD is Attending Physician. gautam 16:30 Patient has correct armband on for positive identification. Bed in low position. Call em light in reach. Side rails up X2. Pulse ox on. NIBP on. 16:47 Oral contrast reported to be complete. vm2 17:00 Missed attempt(s): 22 gauge in right antecubital area. Bleeding controlled, band aid jp3 applied, catheter tip intact. Patient maintains SpO2 saturation greater than 95% on room air. 17:05 Missed attempt(s): 20 gauge in right forearm. Bleeding controlled, band aid applied, jp3 catheter tip intact. 17:08 Inserted saline lock: 20 gauge in left antecubital area, using aseptic technique. Blood jp3 collected. 17:08 Initial lab(s) drawn, by me, sent to lab. jp3 17:16 Urine collected: clean catch specimen, clear, telly colored. jp3 18:52 CT Abd/Pelvis - PO and IV Contrast In Process Unspecified. EDMS 20:00 No provider procedures requiring assistance completed. Patient transferred, IV remains tl2 in place. Administered Medications: 17:35 Drug: NS 0.9% 1000 ml Route: IV; Rate: 1 bolus; Site: left antecubital; em 18:47 Follow up: IV Status: Completed infusion; IV Intake: 1000ml em 17:35 Drug: Zofran (Ondansetron) 4 mg Route: IVP; Site: left antecubital; em 18:47 Follow up: Response: No adverse reaction em 17:37 Drug: morphine 2 mg Route: IVP; Site: left antecubital; em 18:47 Follow up: Response: No adverse reaction; Marked relief of symptoms; Pain is decreased em 17:41 Drug: Flagyl 500 mg Volume: 100 ml; Route: IVPB; Rate: 200 ml/hr; Infused Over: 30 em mins; Site: left antecubital; 18:40 Follow up: Response: No adverse reaction; IV Status: Completed infusion; IV Intake: sv 100ml 19:03 Drug: Cipro 400 mg Volume: 200 ml; Route: IVPB; Infused Over: 60 mins; Site: right em antecubital; 20:00 Follow up: IV Status: Completed infusion tl2 19:56 Drug: morphine 2 mg Route: IVP; Site: left antecubital; sg 20:40 Follow up: Response: No adverse reaction; RASS: Alert and Calm (0) tl2 20:20 Drug: NS 0.9% with KCl 20 mEq/L 1000 ml Route: IV; Rate: 125 ml/hr; Site: left tl2 antecubital; 21:13 Follow up: IV Status: Infusion continued upon transfer tl2 20:20 Drug: Zosyn 3.375 grams Route: IVPB; Infused Over: 60 mins; Site: left antecubital; tl2 21:13 Follow up: IV Status: Infusion continued upon transfer tl2 21:12 Drug: morphine 4 mg Route: IVP; Site: left antecubital; tl2 21:14 Follow up: Response: No adverse reaction; Medication administered at discharge. tl2 Intake: 18:40 IV: 100ml; Total: 100ml. sv 18:47 IV: 1000ml; Total: 1100ml. em Outcome: 19:28 ER care complete, transfer ordered by . gautam 20:00 Transferred by ground EMS Note: [facility] tl2 20:00 Condition: stable 20:00 Discharge instructions given to patient, Instructed on the need for transfer. 21:22 Patient left the ED. sg Signatures: Dispatcher [employer] Audra Segovia, RN RN Shan Chowdary RN RN Britton Blank MD MD cha Munoz, Edgar, RN RN Bhavana Dickens RN RN ss Knox, Taylor, RN RN [email or web address] Zaynab Quiles4 Jayleen Hoffman2 Linden Berg jp3
[2019-10-20] MEDS ORDERED: PIPER/TAZO/NS 3.375gm 3.375 GM/100 ML BAG ONE (20:11)
[2019-10-20 20:25] LABS: Blood Morphology Comment NOT SEEN (NOT SEEN); Platelet Estimate ADEQ; Urine White Blood Cell Casts OK
[2019-10-20 20:47] LABS: Urine Blood TRACE (NEG); Urine Glucose NEGATIVE (NEG); Urine Protein NEGATIVE (NEG); Urine Specific Gravity 1.015 (1.005-1.030)
[2019-10-20] MEDS ORDERED: MORPHINE 4 MG/ML SYR ONE (21:09)
[2019-10-20 21:30] VITALS: TEMP 99
[2019-10-20 21:34] VITALS: BP 115/63; O2SAT 95
--- NOTE | 2019-10-21 11:57 | RAD REPORT ---
EXAM DESCRIPTION: CT Abdomen & Pelvis W Contrast CLINICAL HISTORY: Abdominal pain. COMPARISON: 2018 TECHNIQUE: Computed axial tomography of the abdomen and pelvis with contrast was obtained. 100 mL of Isovue 300 was administered intravenously. Oral contrast was given. This exam was performed according to our departmental dose-optimization program, which includes automated exposure control, adjustment of the mA and/or kV according to patient size and/or use of iterative reconstruction technique. FINDINGS: The liver, spleen, pancreas, left adrenal and kidney is unremarkable. An 18 mm right adrenal mass is unchanged. Post-surgical changes of a sigmoidectomy. A loculated fluid collection is present in the left pelvis adjacent to the sigmoid colon. A component measures 3 x 1.5 cm. Another component measures 2.5 x 1.5 cm. A multi-loculated fluid collection is present within the right pelvis. One component measures 2.5 x 1.5 cm. the second component measures 1.5 cm. IMPRESSION: 1. Post-surgical changes of a sigmoidectomy. 2. Small fluid collections within the pelvis is probably abscesses.. 3. Right adrenal mass is unchanged and may represent an adenoma. A cyst is another consideration. Further evaluation with MRI is recommended.
== END 2019-10-20 21:22 ==
LOC: ER 14:40
DX: R10.819 Abdominal tenderness, unspecified site (principal); N73.9 Female pelvic inflammatory disease, unspecified; Z98.890 Other specified postprocedural states; Z88.1 Allergy status to other antibiotic agents; Z88.2 Allergy status to sulfonamides
CPT/HCPCS: 96365; 96367; 87088; 85025; 87086; 80048; 36415; 80076; 81003; 83690; 74177; 96375; 99285; Q9967; J2543; J2270 ×2; J7030; J2405; J0744

== ENCOUNTER 2020-08-02 12:27 | Emergency (ER) | payer BC ==
--- OUTSIDE RECORDS SUMMARY | 2020-08-02 12:31 | XMS REPORT | Clinical Summary ---
:1960 Author Organization [facility] Address [address] [place] [address] Care Team Providers Name Role Phone Unavailable Primary Care Provider Unavailable Allergies Not on File Medications Medication Sig Dispensed Refills Start Date End Date Status metroNIDAZOLE Take 1 tablet 3 tablet 0 10/13/2019 10/14/2019 (FLAGYL) 500 MG (500 mg total) tablet by mouth take as directed (bowel prep) for up to 1 day. Take one tablet at 2 pm, 3 pm and 10 pm neomycin (MYCIFRADIN) Take 1 tablet 6 tablet 0 10/13/201910/2019 500 mg tablet (500 mg total) by mouth take as directed (preop) for up to 1 day. Take 2 tablets at 2 pm, 3pm, and 10 pm night prior to surgery vancomycin (VANCOCIN) Take 1 capsule 40 capsule 0 10/27/2019 0 11/06/2019 250 MG (250 mg total) capsuleIndications: by mouth 4 Diarrhea, unspecified (four) times a type day for 10 days. Active Problems Not on file Encounters Date Type Specialty Care Team Description 10/27/2019 Lab Lab Alagugurusamy, Canceled (Sunita karissa Espinosa, Error) Daniel Acosta MD 10/27/2019 Lab Lab Alagugurusamy, Diarrhea, uns pecified keisha Coe Eric Mitchell, MD 10/27/2019 Orders Only General Surgery Glendygugurusamy, Diarrhea, unspecified keisha Coe (Prim inga Dx) LAUREN 10/13/2019 Orders Only General Surgery Francoise Berry NP-C 10/09/[address] Bryant MD after 08/02/2019 Social History Tobacco Use Types Packs/Day Years Used Date Never Assessed Sex Assigned at Date Recorded Not on file Last Filed Vital Signs Not on file Plan of Treatment Health Maintenance Due Date Last Done Comments COVID-19 VACCINE (#1) 1975 CERVICAL CANCER SCREENING 11/23/1980 BREAST CANCER SCREENING 11/23/2009 COLONOSCOPY SCREENING 11/23/2009 SHINGLES VACCINES (#1) 11/23/2009 INFLUENZA VACCINE 03/13/2020 Procedures Procedure Name Priority Date/Time Associated Comments Diagnosis GASTROINTESTINAL PANEL Routine 10/27/2019 2:08 Diarrhea, R esults for this PM CDT unspecified type procedure a re in the results section. after 08/02/2019 Results Gastrointestinal panel (10/27/2019 2:08 PM CDT) Pathologist [facility] Gastrointestinal panel Negative for all pathogens tested: [place] Negative for Salmonella [facility] Negative for Campylobacter [facility] Negative for Diarrheagenic E coli/Shigella Negative for Shiga-like toxin-producing E coli Negative for Plesiomonas shigelloides Negative for Yersinia enterocolitica Negative for Vibrio species Negative for Clostridium difficile (Toxin A/B) Negative for Cryptosporidium Negative for Giardia lamblia Negative for Cyclospora cayeteanensis Negative for Entamoeba histolytica Negative for Adenovirus F 40/41 Negative for Astrovirus Negative for Norovirus GI/GII Negative for Rotavirus A Negative for Sapovirus Negative for Clostridium difficile toxin Negative for E coli 0157 This real-time PCR assay detects the presence of nucle ic acids (RNA or DNA) for the gastrointestinal pathogens listed. A result of "Not-detected" does not exclude the possib ility of the presence of one or more pathogens at concentrat ions less than the detectable limits of the assay. 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
--- OUTSIDE RECORDS SUMMARY | 2020-08-02 12:32 | XMS REPORT | Continuity of Care Document ---
:1960 Author Organization [facility] t Address [address] [place] [place] [address] Care Team Providers Name Role Phone Francisca Choudhury Attending Clinician [phone] Anibal Ugner MD Attending Clinician Dago Bryant MD Attending Clinician Payers Payer Name Policy Type Policy Effective Date Expiration Date Sour ce Number BCBSBCBS CHOICE [id number] 2018 [place] PPO/FEDERAL 00:00:00 [employer] EMPL [id number] 2018-[place]en tPPO Problems This patient has no known problems. Allergies, Adverse Reactions, Alerts Allergy Allergy Status Severity Reaction(s) Onset Inactive Treating Comm ents Source Name Type Date Date Clinician Sulfa DA Active U 2019-0 [facility] (Sulfona 10-12 [place] mid 00:00: [facility] Antibiot 00 are ics) [facility] clarithr DA Active U 2019-0 [facility] omycin 10-12 [place] 00:00: [facility] are [facility] Social History Social Habit Start Date Stop Date Quantity Comments Source Sex Assigned At Wilmer plata [facility] Medications Ordered Filled Start Stop Current Ordering Indication Dosage Frequency Signature Comments Components Source Medication Medication Date Date Medication? Clinician (SIG) Name Name vancomycin 0 2020- No Diarrhea, 250mg Q.25D Take 1 [place] (VANCOCIN) 3-16 03-26 unspecified capsule Methodi 250 MG 00:00: 23:59 type ([address] capsule 00 :00 total) by mouth 4 (four) times a day for 10 days. metroNIDAZO 500mg Take 1 [place] YAMINI (FLAGYL) 10-12 tablet Metho di 500 MG 00:00: 23:59 ([address] tablet 00 :00 total) by mouth take as directed (bowel prep) for up to 1 day. Take one tablet at 2 pm, 3 pm and 10 pm neomycin No 500mg Take 1 [place] (MYCIFRADIN 10-12 tablet Metho di ) 500 mg 00:00: 23:59 ([address] tablet 00 :00 total) by mouth take as directed (preop) for up to 1 day. Take 2 tablets at 2 pm, 3pm, and 10 pm night prior to surgery Procedures Procedure Date / Time Performed Performing Clinician [facility] GASTROINTESTINAL PANEL 2019-10-27 14:08:00 Reggie Berry Plan of Care Planned Activity Planned Date Details Comments Source Future Scheduled 2020-03-13 INFLUENZA VACCINE [place] [facility] 00:00:00 [code = INFLUENZA VACCINE] Future Scheduled 2009-11-23 BREAST CANCER [facility] Test 00:00:00 SCREENING [code = BREAST CANCER SCREENING] Future Scheduled 2009-11-23 COLONOSCOPY SCREENING [place] [facility] Test 00:00:00 [code = COLONOSCOPY SCREENING] Future Scheduled 2009-11-23 SHINGLES VACCINES [place] [facility] 00:00:00 (#1) [code = SHINGLES VACCINES (#1)] Future Scheduled 1980-11-23 Screening for [facility] Test 00:00:00 malignant neoplasm of cervix (procedure) [code = 840146044] Future Scheduled 1975 COVID-19 VACCINE (#1) [place] [facility] Test 00:00:00 [code = COVID-19 VACCINE (#1)] Encounters Start End Encounter Admission Attending Care Care Encounter Source Date/Time Date/Time Type Type Clinicians Facility Department ID 2019-10-27 2019-10-27 [facility] [id number] [place] 00:00:00 00:00:[address] 2019-10-27 2019-10-27 Outpatient [facility] [id number] [place] 00:00:00 00:00:[address] Results Test Description Test Test Results Result Source Time Comments Comments Gastrointestinal 2019-10 Gastrointestinal [place] panel -16 panelNegative for all [facility] 18:47:3 pathogens tested:Negative 1 for SalmonellaNegative for CampylobacterNegative for Diarrheagenic E coli/ShigellaNegative for Shiga-like toxin-producing E coliNegative for Plesiomonas shigelloidesNegative for Yersinia enterocoliticaNegative for Vibrio speciesNegative for Clostridium difficile (Toxin A/B)Negative for CryptosporidiumNegative for Giardia lambliaNegative for Cyclospora cayeteanensisNegative for Entamoeba histolyticaNegative for Adenovirus F 40/41Negative for AstrovirusNegative for Norovirus GI/GIINegative for Rotavirus ANegative for SapovirusNegative for Clostridium difficile toxinNegative for E coli 0157This real-time PCR assay detects the presence of nucleic acids (RNA or DNA) for the gastrointestinal pathogens listed.A result of "Not-detected" does not exclude the possibility of the presence of one or more pathogens at concentrations less than the detectable limits of the assay. Comment: Specimen InformationSpecimen Source: StoolSpecimen Site: Nonpreserved [facility] CBC W/AUTO DIFF 2019-10-22 04:23:00 Test Item Value Reference Range Interpretation Comme nts WHITE BLOOD CELL (test code = WBC) 3.7 x10 3/uL 4.8-10.8 L RED BLOOD CELL (test code = RBC) 3.50 x10 6/uL 4.20-5.40 L HEMOGLOBIN (test code = HGB) 10.3 g/dL 14.5-20 L HEMATOCRIT (test code = HCT) 31.9 % 37.0-47.0 L MEAN CELL VOLUME (test code = MCV) 91.1 fL 81.0-99.0 N MEAN CELL HGB (test code = MCH) 29.4 pg 27-31 N MEAN CELL HGB CONCENTRATION (test code = MCHC) 32.3 G/DL 33-36.5 L RED CELL DISTRIBUTION WIDTH (test code = RDW) 12.1 % 12.9-16. 9 L PLATELET COUNT (test code = PLT) 314 150-440 N MEAN PLATELET VOLUME (test code = MPV) 9.0 fL 8.9-12.4 N NEUTROPHIL % (test code = NT%) 39.2 % 42.2-75.2 L LYMPHOCYTE % (test code = LY%) 36.5 % 20.5-51.1 N MONOCYTE % (test code = MO%) 13.5 % 1.7-9.3 H EOSINOPHIL % (test code = EO%) 9.7 % 0.0-7.0 H BASOPHIL % (test code = BA%) 0.8 % 0-2.5 N NEUTROPHIL # (test code = NT#) 1.45 x10 3/uL 1.80-7.70 L LYMPHOCYTE # (test code = LY#) 1.35 x10 3/uL 1.00-4.80 N MONOCYTE # (test code = MO#) 0.50 x10 3/uL 0.00-0.80 N EOSINOPHIL # (test code = EO#) 0.36 x10 3/uL 0.00-0.45 N BASOPHIL # (test code = BA#) 0.03 x10 3/uL 0.0-0.20 N CBC W/AUTO [id number] 04:37:00 Test Item Value Reference Range Interpretation Comments WHITE BLOOD CELL (test code = 4.4 x10 3/uL 4.8-10.8 L WBC) RED BLOOD CELL (test code = 3.11 x10 6/uL 4.20-5.40 L RBC) HEMOGLOBIN (test code = HGB) 9.1 g/dL 14.5-20 L HEMATOCRIT (test code = HCT) 28.3 % 37.0-47.0 L MEAN CELL VOLUME (test code = 91.0 fL 81.0-99.0 N MCV) MEAN CELL HGB (test code = MCH) 29.3 pg 27-31 N MEAN CELL HGB CONCENTRATION 32.2 G/DL 33-36.5 L (test code = MCHC) RED CELL DISTRIBUTION WIDTH 12.2 % 12.9-16.9 L (test code = RDW) PLATELET COUNT (test code = 264 150-440 N PLT) MEAN PLATELET VOLUME (test code 9.2 fL 8.9-12.4 N = MPV) NEUTROPHIL % (test code = NT%) 41.3 % 42.2-75.2 L LYMPHOCYTE % (test code = LY%) 33.0 % 20.5-51.1 N MONOCYTE % (test code = MO%) 17.6 % 1.7-9.3 H EOSINOPHIL % (test code = EO%) 7.4 % 0.0-7.0 H BASOPHIL % (test code = BA%) 0.5 % 0-2.5 N NEUTROPHIL # (test code = NT#) 1.83 x10 3/uL 1.80-7.70 N LYMPHOCYTE # (test code = LY#) 1.46 x10 3/uL 1.00-4.80 N MONOCYTE # (test code = MO#) 0.78 x10 3/uL 0.00-0.80 N EOSINOPHIL # (test code = EO#) 0.33 x10 3/uL 0.00-0.45 N BASOPHIL # (test code = BA#) 0.02 x10 3/uL 0.0-0.20 N CBC W/AUTO [id number] 00:56:00 Test Item Value Reference Range Interpretation Comments WHITE BLOOD CELL (test code = 4.7 x10 3/uL 4.8-10.8 L WBC) RED BLOOD CELL (test code = 3.13 x10 6/uL 4.20-5.40 L RBC) HEMOGLOBIN (test code = HGB) 9.3 g/dL 14.5-20 L HEMATOCRIT (test code = HCT) 27.9 % 37.0-47.0 L MEAN CELL VOLUME (test code = 89.1 fL 81.0-99.0 N MCV) MEAN CELL HGB (test code = MCH) 29.7 pg 27-31 N MEAN CELL HGB CONCENTRATION 33.3 G/DL 33-36.5 N (test code = MCHC) RED CELL DISTRIBUTION WIDTH 12.2 % 12.9-16.9 L (test code = RDW) PLATELET COUNT (test code = 282 150-440 N PLT) MEAN PLATELET VOLUME (test code 9.2 fL 8.9-12.4 N = MPV) NEUTROPHIL % (test code = NT%) 39.8 % 42.2-75.2 L LYMPHOCYTE % (test code = LY%) 34.4 % 20.5-51.1 N MONOCYTE % (test code = MO%) 17.7 % 1.7-9.3 H EOSINOPHIL % (test code = EO%) 7.3 % 0.0-7.0 H BASOPHIL % (test code = BA%) 0.4 % 0-2.5 N NEUTROPHIL # (test code = NT#) 1.86 x10 3/uL 1.80-7.70 N LYMPHOCYTE # (test code = LY#) 1.61 x10 3/uL 1.00-4.80 N MONOCYTE # (test code = MO#) 0.83 x10 3/uL 0.00-0.80 H EOSINOPHIL # (test code = EO#) 0.34 x10 3/uL 0.00-0.45 N BASOPHIL # (test code = BA#) 0.02 x10 3/uL 0.0-0.20 N PROCALCITONIN (PCT)2019-10-21 00:54:00 Test Item Value Reference Range Interpretation Comments PROCALCITONIN (PCT) 0.03 NG/ML 0.00-0.09 N INTERPRE TATIVE DATA:HIGH (test code = PROCAL) ACUITY INFECTIONS ALGORITHM:(i.e. high risk, severe se psis, ICU) If PCT concentration < 0.25 ng/mL or drops by 90%, stoppingantibio tic therapy is stro ngly encouraged. If PCT concentration < 0.50 ng/mL or drops by 80%, stoppingantibio tic therapy is enco uraged. If PCT concentr ation >0.50 ng/mL, st opping antibioticthera py is discouraged. I f PCT concentration > 1.00 ng/mL, stopping antibioticthera py is strongly discou raged. Consider contin uing antibiotics if clinically unstable. _ MODERATE ACUI TY INFECTIONS ALGORITHM:(hosp italized non-ICU patient s with respiratory tractinfections or sepsis) If PC T concentration < 0.10 ng/mL or drops by 90%, stoppingantibio tic therapy is stro ngly encouraged. If PCT concentration < 0.25 ng/mL or drops by 80%, stoppingantibio tic therapy is enco uraged. If PCT concentr ation >0.25 ng/mL, st opping antibioticthera py is discouraged. I f PCT concentration > 0.50 ng/mL, stopping antibioticthera py is strongly discou raged. Consider contin uing antibiotics if clinically unst able. COMPREHENSIVE METABOLIC [id number] 00:51:00 Test Item Value Reference Range Interpretation Comments SODIUM (test code = 134 MMOL/L 136-143 L NA) POTASSIUM (test 3.5 MMOL/L 3.5-5.1 N code = K) CHLORIDE (test code 99 MMOL/L 98-107 N = CL) CARBON DIOXIDE 24 mmol/L 24-31 N (test code = CO2) GLUCOSE (test code 92 mg/dL 70-104 N = GLU) BLOOD UREA NITROGEN 8.3 MG/DL 7.0-21.0 N (test code = BUN) GLOMERULAR >=60 max >60 The estimated FILTRATION RATE estimate glomerular (test code = GFR) filtration rate is computed usingpatient ra ce, age (>18), sex, and serum creatinin e. If anyof the ne eded data elements a re missing the Laboratory ruben ot compute an estimation of t he glomerular filtration rate . CREATININE (test 0.7 mg/dL 0.8-1.5 L code = CREAT) TOTAL PROTEIN (test 5.8 g/dL 6.3-8.3 L code = PROT) ALBUMIN (test code 3.1 G/DL 3.5-5.0 L = ALB) CALCIUM (test code 8.7 mg/dL 8.8-10.2 L = CA) BILIRUBIN TOTAL 0.3 mg/dL 0.2-1.0 N (test code = BILT) SGOT/AST (test code 12 IU/L 10-34 N = AST) SGPT/ALT (test code 9 U/L 10-36 L = ALT) ALKALINE 71 U/L 32-104 N PHOSPHATASE (test code = ALKP) SURGICAL [id number] 12:07:00 RUN DATE: 03/05/20 [facility] - LAB PAGE 1 RUN TIME: 1207 Specimen Inquiry RUN USER: INTERFACE PATIENT: DELMI GARIBAY LOC: [id number] POD B U #: [id number] AGE/SX: 58/F ROOM: [facility] RE10/14/19[facility] DR: Moses Unger MD : 58 BED: 1 DIS: STATUS: ADM IN TLOC: SPEC #: [id number] RECD: 10/14/19 STATUS: VIKAS PEDRITO #: [id number] MIGUEL ANGEL: 10/14/[address]: Moses Unger MD ENTERED: 10/14/19 SP TYPE: SURG OTHR DR: Faisal Marte MD, Matthew MDORDERED: PATHGM5, PATH SPEC, H E STAIN HISTOLOGY: TISSUE ID BLK PCS MIGUEL ÁNGEL LEV / PROCEDURE DISPOSITION ____ ___ ___ ___ ___ DIVERTICULUM A 6 1 TISSUES: A. DIVERTICULUM - Sigmoid Diverticulum, Sigmoid Lesion, Donuts CLINICAL HISTORY Diverticulitis, Bowel Stricture COMMENT Sections of two small mucosal polypoid areas demonstrate mild hyperplastic changes and small benign lymphoid aggregates. No adenomatous changes are identified. FINAL DIAGNOSIS SIGMOID DIVERTICULUM, SIGMOID LESION AND DONUTS, RESECTION: - Diverticula with associated acute and chronic inflammation andreactive changes including fibrosis. - Submucosal lipoma (1.5 cm). GROSS DESCRIPTION SIGMOID DIVERTICULA, SIGMOID LESION, DONUTS: The specimen consists of a segment of colon which measures 11.5 x 3.5 x 2 cm. This portion of the specimen is partially opened. Also within the specimen container is a separate piece of partially disrupted colonic tissue with attached adipose which measures 4.5 x 2.5 x 1 cm. Two separate small segments/rings of colonic tissue ("donuts") which measure 2.5 x 2 x 1 cm and 1.5 x 1 x 1 cm are also present in the specimen container. Also present is aseparate partially disrupted piece of adipose tissue which measures 11 x 3.5 x 1.5 cm. On examination, the segment of colon demonstrates a polypoid area of mucosa with submucosal nodular adipose tissue grossly consistent with a submucosal lipoma which measures 1.5 x 1 x 0.5 cm. Two small mucosalpossible polyps which measure 1-2 mm each are also present. Occasional diverticula are also noted.On sectioning the diverticula, impacted fecal material is identified. The separate rings/donuts and disrupted piece of colon demonstrate no significant lesions. [employer] sections are submitted as follows: A1, submucosal lipoma; A2, possible small polyps; A3-A4, diverticula; A5, uniforms sales representative sections of large donut; A6, uniforms sales representative sections CONTINUED ON NEXT PAGE RUN DATE: 10/16/19 [facility] - LAB PAGE 2 RUN TIME: 1207 Specimen Inquiry RUN USER: INTERFACE SPEC #: [id number] PATIENT: DELMI GARIBAY #[id number] (Continued) GROSS DESCRIPTION (Continued) of small donut. ABDIRAHMAN/maureen MICROSCOPIC DESCRIPTION Microscopic performed. Signed SIGNATURE ON FILE Valerie Duncan MD 10/16/19 1207 END OF REPORT BASIC METABOLIC [id number] 05:47:00 Test Item Value Reference Range Interpretation Comments SODIUM (test code 134 MMOL/L 136-143 L = NA) POTASSIUM (test 3.4 MMOL/L 3.5-5.1 L code = K) CHLORIDE (test 100 MMOL/L 98-107 N code = CL) CARBON DIOXIDE 25 mmol/L 24-31 N (test code = CO2) GLUCOSE (test code 108 mg/dL 70-104 H = GLU) BLOOD UREA 2.6 MG/DL 7.0-21.0 L NITROGEN (test code = BUN) GLOMERULAR >=60 max >60 The estimated FILTRATION RATE estimate glomerular (test code = GFR) filtration rate is computed usingpatient ra ce, age (>18), sex, and serum creatinin e. If anyof the neede d data elements a re missing the Laboratory ruben ot compute an estimation of t he glomerular filtration rate . CREATININE (test 0.5 mg/dL 0.8-1.5 L code = CREAT) CALCIUM (test code 8.8 mg/dL 8.8-10.2 N = CA) [id number] 05:46:00 Test Item Value Reference Range Interpretation Comments MAGNESIUM (test code = MAG) 1.8 mg/dL 1.4-2.6 N CBC W/AUTO [id number] 05:41:00 Test Item Value Reference Range Interpretation Comments WHITE BLOOD CELL (test code = 6.4 x10 3/uL 4.8-10.8 N WBC) RED BLOOD CELL (test code = 3.35 x10 6/uL 4.20-5.40 L RBC) HEMOGLOBIN (test code = HGB) 10.0 g/dL 14.5-20 L HEMATOCRIT (test code = HCT) 31.1 % 37.0-47.0 L MEAN CELL VOLUME (test code = 92.8 fL 81.0-99.0 N MCV) MEAN CELL HGB (test code = MCH) 29.9 pg 27-31 N MEAN CELL HGB CONCENTRATION 32.2 G/DL 33-36.5 L (test code = MCHC) RED CELL DISTRIBUTION WIDTH 12.7 % 12.9-16.9 L (test code = RDW) PLATELET COUNT (test code = 200 150-440 N PLT) MEAN PLATELET VOLUME (test code 10.3 fL 8.9-12.4 N = MPV) NEUTROPHIL % (test code = NT%) 71.7 % 42.2-75.2 N LYMPHOCYTE % (test code = LY%) 12.1 % 20.5-51.1 L MONOCYTE % (test code = MO%) 12.0 % 1.7-9.3 H EOSINOPHIL % (test code = EO%) 3.4 % 0.0-7.0 N BASOPHIL % (test code = BA%) 0.5 % 0-2.5 N NEUTROPHIL # (test code = NT#) 4.61 x10 3/uL 1.80-7.70 N LYMPHOCYTE # (test code = LY#) 0.78 x10 3/uL 1.00-4.80 L MONOCYTE # (test code = MO#) 0.77 x10 3/uL 0.00-0.80 N EOSINOPHIL # (test code = EO#) 0.22 x10 3/uL 0.00-0.45 N BASOPHIL # (test code = BA#) 0.03 x10 3/uL 0.0-0.20 N BASIC METABOLIC [id number] 06:26:00 Test Item Value Reference Range Interpretation Comments SODIUM (test code 134 MMOL/L 136-143 L = NA) POTASSIUM (test 3.5 MMOL/L 3.5-5.1 N code = K) CHLORIDE (test 103 MMOL/L 98-107 N code = CL) CARBON DIOXIDE 24 mmol/L 24-31 N (test code = CO2) GLUCOSE (test code 117 mg/dL 70-104 H = GLU) BLOOD UREA 4.0 MG/DL 7.0-21.0 L NITROGEN (test code = BUN) GLOMERULAR >=60 max >60 The estimated FILTRATION RATE estimate glomerular (test code = GFR) filtration rate is computed usingpatient ra ce, age (>18), sex, and serum creatinin e. If anyof the neede d data elements a re missing the Laboratory ruben ot compute an estimation of t he glomerular filtration rate . CREATININE (test 0.6 mg/dL 0.8-1.5 L code = CREAT) CALCIUM (test code 8.2 mg/dL 8.8-10.2 L = CA) [id number] 06:26:00 Test Item Value Reference Range Interpretation Comments MAGNESIUM (test code = MAG) 1.7 mg/dL 1.4-2.6 N CBC W/AUTO [id number] 05:58:00 Test Item Value Reference Range Interpretation Comments WHITE BLOOD CELL (test code = 4.7 x10 3/uL 4.8-10.8 L WBC) RED BLOOD CELL (test code = 3.20 x10 6/uL 4.20-5.40 L RBC) HEMOGLOBIN (test code = HGB) 9.5 g/dL 14.5-20 L HEMATOCRIT (test code = HCT) 29.7 % 37.0-47.0 L MEAN CELL VOLUME (test code = 92.8 fL 81.0-99.0 N MCV) MEAN CELL HGB (test code = MCH) 29.7 pg 27-31 N MEAN CELL HGB CONCENTRATION 32.0 G/DL 33-36.5 L (test code = MCHC) RED CELL DISTRIBUTION WIDTH 12.7 % 12.9-16.9 L (test code = RDW) PLATELET COUNT (test code = 195 150-440 N PLT) MEAN PLATELET VOLUME (test code 10.1 fL 8.9-12.4 N = MPV) NEUTROPHIL % (test code = NT%) 68.0 % 42.2-75.2 N LYMPHOCYTE % (test code = LY%) 19.9 % 20.5-51.1 L MONOCYTE % (test code = MO%) 10.4 % 1.7-9.3 H EOSINOPHIL % (test code = EO%) 1.1 % 0.0-7.0 N BASOPHIL % (test code = BA%) 0.4 % 0-2.5 N NEUTROPHIL # (test code = NT#) 3.21 x10 3/uL 1.80-7.70 N LYMPHOCYTE # (test code = LY#) 0.94 x10 3/uL 1.00-4.80 L MONOCYTE # (test code = MO#) 0.49 x10 3/uL 0.00-0.80 N EOSINOPHIL # (test code = EO#) 0.05 x10 3/uL 0.00-0.45 N BASOPHIL # (test code = BA#) 0.02 x10 3/uL 0.0-0.20 N CBC W/AUTO [id number] 13:05:00 Test Item Value Reference Range Interpretation Comments WHITE BLOOD CELL (test code = 5.8 x10 3/uL 4.8-10.8 N WBC) RED BLOOD CELL (test code = 4.19 x10 6/uL 4.20-5.40 L RBC) HEMOGLOBIN (test code = HGB) 12.5 g/dL 14.5-20 L HEMATOCRIT (test code = HCT) 38.0 % 37.0-47.0 N MEAN CELL VOLUME (test code = 90.7 fL 81.0-99.0 N MCV) MEAN CELL HGB (test code = MCH) 29.8 pg 27-31 N MEAN CELL HGB CONCENTRATION 32.9 G/DL 33-36.5 L (test code = MCHC) RED CELL DISTRIBUTION WIDTH 12.5 % 12.9-16.9 L (test code = RDW) PLATELET COUNT (test code = 308 150-440 N PLT) MEAN PLATELET VOLUME (test code 9.7 fL 8.9-12.4 N = MPV) NEUTROPHIL % (test code = NT%) 62.5 % 42.2-75.2 N LYMPHOCYTE % (test code = LY%) 25.6 % 20.5-51.1 N MONOCYTE % (test code = MO%) 7.4 % 1.7-9.3 N EOSINOPHIL % (test code = EO%) 3.6 % 0.0-7.0 N BASOPHIL % (test code = BA%) 0.7 % 0-2.5 N NEUTROPHIL # (test code = NT#) 3.63 x10 3/uL 1.80-7.70 N LYMPHOCYTE # (test code = LY#) 1.49 x10 3/uL 1.00-4.80 N MONOCYTE # (test code = MO#) 0.43 x10 3/uL 0.00-0.80 N EOSINOPHIL # (test code = EO#) 0.21 x10 3/uL 0.00-0.45 N BASOPHIL # (test code = BA#) 0.04 x10 3/uL 0.0-0.20 N
[2020-08-02] MEDS ORDERED: ONDANSETRON 4 MG/2 ML VIAL ONE (13:11)
[2020-08-02] MEDS ORDERED: FENTANYL CITR 100 MCG/2 ML ONE (13:11)
[2020-08-02 13:13] LABS: Absolute Lymphocytes (CBC) 1.8 K/uL (0.7-4.9); Basophils % 1.1 % (0-1.3); Hematocrit 38.2 % (36.0-45.0); Lymphocytes % 26.8 % (15.3-44.8); MPV 8.6 fL (7.6-11.3); RBC Red Blood Cell Count 4.15 M/uL (3.86-4.86)
[2020-08-02 13:19] LABS: Protime INR 0.89
[2020-08-02 13:34] LABS: ALT/SGPT 17 U/L (12-78); AST/SGOT 19 U/L (15-37); Alkaline Phosphatase 84 U/L (45-117); BUN Blood Urea Nitrogen 21 mg/dL (7-18); Bicarbonate 22 mmol/L (21-32); Bilirubin Direct 0.1 mg/dL (0-0.2); Bilirubin Total 0.4 mg/dL (0.2-1.0); Glucose Level 92 mg/dL (74-106); Lipase 190 U/L (73-393); Magnesium 2.3 mg/dL (1.8-2.4); NT PRO-BNP 110 pg/mL (<125); Potassium 3.7 mmol/L (3.5-5.1); Sodium Level 136 mmol/L (136-145); Troponin (Emerg Dept Use Only) < 0.02 ng/mL (0.0-0.045)
--- NOTE | 2020-08-02 13:55 | RAD REPORT ---
EXAM DESCRIPTION: CTAbdomen Pelvis W Contrast - 08/02/2020 1:35 pm CLINICAL HISTORY: Abdominal pain. ABD PAIN COMPARISON: Abdomen Pelvis W Contrast dated 10/20/2019; Abdomen Pelvis W Contrast dated 06/13/2019 TECHNIQUE: Biphasic CT imaging of the abdomen and pelvis was performed with 100 ml non-ionic IV cont rast. All CT scans are performed using dose optimization technique as appropriate and may include automated exposure control or mA/KV adjustment according to patient size. FINDINGS: The lung bases are clear. The liver, spleen, pancreas, left adrenal gland and kidneys are within normal limits. 18 mm right adr enal mass, stable. No bowel obstruction, free air, free fluid or abscess. Postsurgical changes of a sigmoidectomy. Appe ndectomy also noted. Few scattered diverticula are present about the colon. No diverticulitis finding s. No evidence of significant lymphadenopathy. Moderate lumbosacral degenerative changes. IMPRESSION: No acute intra-abdominal or pelvic finding.
--- NOTE | 2020-08-02 14:12 | RAD REPORT ---
EXAM DESCRIPTION: RAD - Chest Single View - 08/02/2020 1:47 pm CLINICAL HISTORY: CHEST PAIN Chest pain. COMPARISON: Abdomen Pelvis W Contrast dated 08/02/2020 FINDINGS: Portable technique limits examination quality. The lungs are grossly clear. The heart is upper limit of normal in size. No displaced fractures.
--- NOTE | 2020-08-02 15:02 | EDPHYS ---
Physician Documentation [facility] Name: Lucille Mortensen Age: 59 yrs Sex: Female : 1960 Arrival Date: 08/02/2020 Time: 12:28 Bed 2 Private MD: ED Physician Alexandr Hawley HPI: 08/02 15:03 This 59 yrs old Female presents to ER via Wheelchair with complaints of jr8 Shortness Of Breath, Abdominal Pain, Nausea/Vomiting. 15:03 The patient presents with abdominal pain. Onset: The symptoms/episode began/occurred jr8 acutely, today. The symptoms radiate to the left flank. Associated signs and symptoms: Pertinent positives: nausea and vomiting, shortness of breath. The symptoms are described as stabbing. Modifying factors: The symptoms are alleviated by nothing, the symptoms are aggravated by nothing. Severity of pain: At its worst the pain was moderate in the emergency department the pain is unchanged. The patient has not experienced similar symptoms in the past. The patient has not recently seen a physician. Patient stated that she has had intermittent upper left abdominal pain and pain under breast for a few months. Today had markedly worsened . Historical: - Allergies: 12:38 Bactrim; ca1 12:38 Sulfa (Sulfonamide Antibiotics); ca1 12:38 Biaxin; ca1 - PMHx: 12:38 Depression; Sleep Apnea; Hypothyroidism; Rheumatoid Arthritis; ca1 - PSHx: 12:38 Appendectomy; colon resection; ca1 - Immunization history:: Adult Immunizations up to date, Flu vaccine is not up to date. - Social history:: Smoking status: Patient denies any tobacco usage or history of. ROS: 15:03 Eyes: Negative for injury, pain, redness, and discharge, ENT: Negative for injury, jr8 pain, and discharge, Neck: Negative for injury, pain, and swelling, Cardiovascular: Negative for chest pain, palpitations, and edema, Back: Negative for injury and pain, MS/Extremity: Negative for injury and deformity, Skin: Negative for injury, rash, and discoloration, Neuro: Negative for headache, weakness, numbness, tingling, and seizure. 15:03 Respiratory: Positive for shortness of breath. 15:03 Abdomen/GI: Positive for abdominal pain, nausea and vomiting, Negative for diarrhea, constipation, abdominal cramps, abdominal distension. Exam: 15:03 Eyes: Pupils equal round and reactive to light, extra-ocular motions intact. Lids and jr8 lashes normal. Conjunctiva and sclera are non-icteric and not injected. Cornea within normal limits. Periorbital areas with no swelling, redness, or edema. ENT: Nares patent. No nasal discharge, no septal abnormalities noted. Tympanic membranes are normal and external auditory canals are clear. Oropharynx with no redness, swelling, or masses, exudates, or evidence of obstruction, uvula midline. Mucous membranes moist. Neck: Trachea midline, no thyromegaly or masses palpated, and no cervical lymphadenopathy. Supple, full range of motion without nuchal rigidity, or vertebral point tenderness. No Meningismus. Cardiovascular: Regular rate and rhythm with a normal S1 and S2. No gallops, murmurs, or rubs. Normal PMI, no JVD. No pulse deficits. Respiratory: Lungs have equal breath sounds bilaterally, clear to auscultation and percussion. No rales, rhonchi or wheezes noted. No increased work of breathing, no retractions or nasal flaring. Back: No spinal tenderness. No costovertebral tenderness. Full range of motion. Skin: Warm, dry with normal turgor. Normal color with no rashes, no lesions, and no evidence of cellulitis. MS/ Extremity: Pulses equal, no cyanosis. Neurovascular intact. Full, normal range of motion. Neuro: Awake and alert, GCS 15, oriented to person, place, time, and situation. Cranial nerves II-XII grossly intact. Motor strength 5/5 in all extremities. Sensory grossly intact. Cerebellar exam normal. Normal gait. 15:03 Abdomen/GI: Inspection: abdomen appears normal, Bowel sounds: active, all quadrants, Palpation: soft, in all quadrants, moderate abdominal tenderness, in the left upper quadrant, mass, is not appreciated, rebound tenderness, is not appreciated, voluntary guarding, is not appreciated, involuntary guarding, is not appreciated, no appreciated organomegaly, Indicators: McBurney's point is not tender, Wylie's sign is negative, Rovsing's sign is negative, Liver: tenderness, is not appreciated. Vital Signs: 12:33 BP 129 / 98; Pulse 90; Resp 20 S; Temp 97.9(TE); Pulse Ox 100% on R/A; Weight 68.04 kg ca1 (R); Height 5 ft. 6 in. (167.64 cm) (R); Pain 10/10; 13:00 BP 146 / 98; Pulse 75; Resp 20; Pulse Ox 100% on R/A; vg1 14:00 BP 124 / 80; Pulse 64; Resp 20; Pulse Ox 96% on R/A; vg1 14:14 Pain 4/10; vg1 14:52 BP 120 / 80; Pulse 75; Resp 18; Pulse Ox 97% on R/A; tw2 15:30 BP 129 / 80; Pulse 62; Resp 16; Pulse Ox 98% on R/A; vg1 12:33 Body Mass Index 24.21 (68.04 kg, 167.64 cm) ca1 MDM: 12:46 Patient medically screened. jr8 14:59 Data reviewed: vital signs, nurses notes, lab test result(s), EKG, radiologic studies, [facility] CT scan, plain films, and as a result, I will discharge patient. Data interpreted: Pulse oximetry: on room air is 97 %. Interpretation: normal. Counseling: I had a detailed discussion with the patient and/or guardian regarding: the historical points, exam findings, and any diagnostic results supporting the discharge/admit diagnosis, lab results, radiology results, the need for outpatient follow up, a family practitioner, to return to the emergency department if symptoms worsen or persist or if there are any questions or concerns that arise at home. Response to treatment: the patient's symptoms have markedly improved after treatment. ED course: Discussed with patient no acute findings on labs or imaging that was completed today that would explain her pain. Most likely muscle or nerve in origin. Will send her home on medications but needs close f/u. If worse or with new symptoms to come back for further evaluation. Patient good with this . 08/02 12:53 Order name: Basic Metabolic Panel; Complete Time: 13:52 08/02 12:53 Order name: CBC with Diff; Complete Time: 13:52 08/02 12:53 Order name: LFT's; Complete Time: 13:52 08/02 12:53 Order name: Magnesium; Complete Time: 13:52 08/02 12:53 Order name: NT PRO-BNP; Complete Time: 13:52 08/02 12:53 Order name: PT-INR; Complete Time: 13:52 08/02 12:53 Order name: Troponin (emerg Dept Use Only); Complete Time: 13:52 08/02 12:53 Order name: XRAY Chest (1 view) 08/02 12:53 Order name: Lipase; Complete Time: 13:52 [facility] 08/02 12:56 Order name: CT Abd/Pelvis - IV Contrast Only [facility] 08/02 13:56 Order name: CT; Complete Time: 14:17 EDMS 08/02 14:13 Order name: RAD; Complete Time: 14:17 EDMS 08/02 14:15 Order name: CREATININE WHOLE BLOOD; Complete Time: 14:17 EDMS 08/02 12:53 Order name: EKG; Complete Time: 12:55 08/02 12:53 Order name: Cardiac monitoring; Complete Time: 13:02 [facility] 08/02 12:53 Order name: EKG - Nurse/Tech; Complete Time: 13:02 [facility] 08/02 12:53 Order name: IV Saline Lock; Complete Time: 13:02 08/02 12:53 Order name: Labs collected and sent; Complete Time: 13:02 [facility] 08/02 12:53 Order name: O2 Per Protocol; Complete Time: 13:02 08/02 12:53 Order name: O2 Sat Monitoring; Complete Time: 13:02 Administered Medications: 13:00 Drug: Zofran (Ondansetron) 4 mg Route: IVP; Site: left antecubital; tw2 14:12 Follow up: Response: No adverse reaction; Nausea is decreased vg1 13:02 Drug: fentaNYL (PF) 75 mcg {Note: RASS 0.} Route: IVP; Site: left antecubital; tw2 14:14 Follow up: Pain 4/10 Adult; Response: Pain is decreased vg1 Disposition: 15:59 Co-signature as Attending Physician, Alexandr Hawley MD. rn Disposition: 08/02/20 15:01 Discharged to Home. Impression: Unspecified abdominal pain. - Condition is Stable. - Discharge Instructions: Abdominal Pain, Adult. - Prescriptions for Robaxin 500 mg Oral Tablet - take 2 tablet by ORAL route every 6 hours As needed; 40 tablet. Tylenol- Codeine #3 300-30 mg Oral Tablet - take 2 tablets by ORAL route every 6 hours As needed; 20 tablet. - Medication Reconciliation Form, Thank You Letter, Antibiotic Education, Prescription Opioid Use form. - Follow up: Private Physician; When: 2 - 3 days; Reason: Recheck today's complaints, Continuance of care, Re-evaluation by your physician. - Problem is new. - Symptoms have improved. Signatures: Dispatcher [employer] EDMS Alexandr Hawley MD MD rn Roszak, Josh, PA PA jr8 Kassy Khan RN RN tw2 Felicia Asher RN RN jl7 Haven Johnson RN RN ca1 Jayleen Quiles, RN RN vg1 Corrections: (The following items were deleted from the chart) 15:52 15:01 08/02/2020 15:01 Discharged to Home. Impression: Unspecified abdominal pain. vg1 Condition is Stable. Forms are Medication Reconciliation Form, Thank You Letter, Antibiotic Education, Prescription Opioid Use. Follow up: Private Physician; When: 2 - 3 days; Reason: Recheck today's complaints, Continuance of care, Re-evaluation by your physician. Problem is new. Symptoms have improved. jr8
--- NOTE | 2020-08-02 15:02 | ER ---
Nurse's Notes [facility] Name: Lucille Mortensen Age: 59 yrs Sex: Female : 1960 Arrival Date: 08/02/2020 Time: 12:28 Bed 2 Private MD: Diagnosis: Unspecified abdominal pain Presentation: 08/02 12:33 Chief complaint: Patient states: I got SOB, pain under my breast on the L side for ca1 several weeks, it's been off and on. But for the last couple hours it did not go away and it keeps getting worse. Denies injury. Denies cough. Reports N/V. Today, had sharp L shoulder pain. Coronavirus screen: Client denies travel out of the [place] in the last 14 days. nausea, shortness of breath, vomiting. Client presents with at least one sign or symptom that may indicate coronavirus-19. Standard/surgical mask placed on the client. Provider contacted for isolation considerations. The client reports previous COVID testing was negative. Date of collection: July 22, 2020. Ebola Screen: Patient negative for fever greater than or equal to 101.5 degrees Fahrenheit, and additional compatible Ebola Virus Disease symptoms Patient denies exposure to infectious person. Patient denies travel to an Ebola-affected area in the 21 days before illness onset. No symptoms or risks identified at this time. Initial Sepsis Screen: Does the patient meet any 2 criteria? No. Patient's initial sepsis screen is negative. Does the patient have a suspected source of infection? No. Patient's initial sepsis screen is negative. Risk Assessment: Do you want to hurt yourself or someone else? Patient reports no desire to harm self or others. Onset of symptoms was August 02, 2020. 12:33 Method Of Arrival: Wheelchair ca1 12:33 Acuity: BARBER 3 ca1 Triage Assessment: 12:38 General: Appears in no apparent distress. uncomfortable, Behavior is crying. Pain:. ca1 13:05 Respiratory: the patient has mild shortness of breath. vg1 Historical: - Allergies: 12:38 Bactrim; ca1 12:38 Sulfa (Sulfonamide Antibiotics); ca1 12:38 Biaxin; ca1 - PMHx: 12:38 Depression; Sleep Apnea; Hypothyroidism; Rheumatoid Arthritis; ca1 - PSHx: 12:38 Appendectomy; colon resection; ca1 - Immunization history:: Adult Immunizations up to date, Flu vaccine is not up to date. - Social history:: Smoking status: Patient denies any tobacco usage or history of. Screenin:51 Abuse screen: Denies threats or abuse. Nutritional screening: No deficits noted. tw2 Tuberculosis screening: No symptoms or risk factors identified. Fall Risk None identified. Assessment: 12:49 Reassessment: provider at bedside. tw2 13:05 General: Appears uncomfortable, Behavior is anxious, crying, restless. Pain: Complains vg1 of pain in epigastric area and left upper quadrant Pain currently is 10 out of 10 on a pain scale. Quality of pain is described as pressure, sharp, Pain began suddenly. Neuro: Level of Consciousness is awake, alert, obeys commands, Oriented to person, place, time, situation. Cardiovascular: Rhythm is sinus rhythm. Respiratory: Airway is patent Respiratory effort is even, unlabored, Respiratory pattern is regular, symmetrical, Breath sounds are clear bilaterally. GI: Abdomen is flat, non-distended, Bowel sounds present X 4 quads. Reports nausea, vomiting. : No signs and/or symptoms were reported regarding the genitourinary system. EENT: No signs and/or symptoms were reported regarding the EENT system. Derm: Skin is intact, is healthy with good turgor, Skin is pink, warm \T\ dry. Musculoskeletal: Range of motion: intact in all extremities. 13:58 Reassessment: Patient appears in no apparent distress at this time. Patient and/or vg1 family updated on plan of care and expected duration. Pain level reassessed. Patient is alert, oriented x 3, equal unlabored respirations, skin warm/dry/pink. Patient states feeling better. 14:51 Reassessment: Patient appears in no apparent distress at this time. Patient and/or tw2 family updated on plan of care and expected duration. Pain level reassessed. Patient is alert, oriented x 3, equal unlabored respirations, skin warm/dry/pink. provider at bedside at this time. Patient states feeling better. Vital Signs: 12:33 BP 129 / 98; Pulse 90; Resp 20 S; Temp 97.9(TE); Pulse Ox 100% on R/A; Weight 68.04 kg ca1 (R); Height 5 ft. 6 in. (167.64 cm) (R); Pain 10/10; 13:00 BP 146 / 98; Pulse 75; Resp 20; Pulse Ox 100% on R/A; vg1 14:00 BP 124 / 80; Pulse 64; Resp 20; Pulse Ox 96% on R/A; vg1 14:14 Pain 4/10; vg1 14:52 BP 120 / 80; Pulse 75; Resp 18; Pulse Ox 97% on R/A; tw2 15:30 BP 129 / 80; Pulse 62; Resp 16; Pulse Ox 98% on R/A; vg1 12:33 Body Mass Index 24.21 (68.04 kg, 167.64 cm) ca1 ED Course: 12:28 Patient arrived in ED. ag5 12:37 Triage completed. ca1 12:38 Arm band placed on right wrist. ca1 12:46 Paul Chris PA is PHCP. jr8 12:46 Alexandr Hawley MD is Attending Physician. jr8 12:49 Kassy Khan, RN is Primary Nurse. tw2 12:51 Bed in low position. Call light in reach. Pulse ox on. NIBP on. tw2 12:55 Inserted saline lock: 20 gauge in left antecubital area, using aseptic technique. Blood vg1 collected. 13:50 Primary Nurse role handed off by Kassy Khan, FILI vg1 13:50 Jayleen Quiles, RN is Primary Nurse. vg1 15:45 No provider procedures requiring assistance completed. IV discontinued, intact, vg1 bleeding controlled, No redness/swelling at site. Pressure dressing applied. Administered Medications: 13:00 Drug: Zofran (Ondansetron) 4 mg Route: IVP; Site: left antecubital; tw2 14:12 Follow up: Response: No adverse reaction; Nausea is decreased vg1 13:02 Drug: fentaNYL (PF) 75 mcg {Note: RASS 0.} Route: IVP; Site: left antecubital; tw2 14:14 Follow up: Pain 4/10 Adult; Response: Pain is decreased vg1 Outcome: 15:01 Discharge ordered by . jr8 15:45 Discharged to home ambulatory. vg1 15:45 Condition: stable 15:45 Discharge instructions given to patient, Instructed on discharge instructions, follow up and referral plans. medication usage, Demonstrated understanding of instructions, follow-up care, medications, Prescriptions given X 2. 15:52 Patient left the ED. vg1 Signatures: Paul Chris PA PA jr8 Kassy Khan RN RN tw2 Haven Johnson RN RN ca1 Wicho Ling ag5 Jayleen Quiles RN RN vg1 Corrections: (The following items were deleted from the chart) 13:17 13:05 Cardiovascular: Rhythm is vg1 vg1
--- NOTE | 2020-08-03 12:42 | EKG ---
Test Date: 2020-08-02 Test Time: 13:03:34 Soft Tile Setter: SHYLA MEASUREMENT RESULTS: Intervals: Rate: 67 LA: 116 QRSD: 84 QT: 426 QTc: 450 [place]: P: 76 LA: 116 QRS: 85 T: 79 INTERPRETIVE STATEMENTS: Normal sinus rhythm ST abnormality, possible digitalis effect Abnormal ECG No previous ECG available for comparison Electronically Signed On 08-03-20 12:39:43 NURSING SERVICE DIRECTOR by Conrado Beltrán
[2020-08-03 23:22] VITALS: TEMP 97.9
[2020-08-03 23:26] VITALS: BP 120/80; O2SAT 97
== END 2020-08-02 15:52 | disposition home or self-care (01) ==
LOC: ER 12:27
DX: R10.12 Left upper quadrant pain (principal); Z88.1 Allergy status to other antibiotic agents; Z88.2 Allergy status to sulfonamides; Z88.6 Allergy status to analgesic agent
CPT/HCPCS: 93005; 85025; 80048; 36415; 83735; 85610; 82565; 80076; 84484; 83690; 83880; 74177; 71045; 96375; 96374; 99284; Q9967; J3010; J2405

== ENCOUNTER 2020-10-15 22:41 | Emergency (ER) | payer BC ==
--- OUTSIDE RECORDS SUMMARY | 2020-10-15 22:45 | XMS REPORT | Continuity of Care Document ---
:1960 Author Organization [facility] t Address [address] [place] [address] Care Team Providers Name Role Phone Francisca Choudhury Attending Clinician [phone] Anibal Unger MD Attending Clinician Payers Payer Name Policy Type Policy Effective Date Expiration Date Sour ce Number BCBSBCBS CHOICE [id number] 2018 [facility] PPO/FEDERAL 00:00:00 [employer]ond[employer]ominational EMPL [id number] 2018-Presen tPPO Problems This patient has no known problems. Allergies, Adverse Reactions, Alerts Allergy Allergy Status Severity Reaction(s) Onset Inactive Treating Comm ents Source Name Type Date Date Clinician Sulfa DA Active U 2020-0 [facility] (Sulfona 10-12 [facility] mide 00:00: [facility] Antibiot 00 are ics) [facility] clarithr DA Active U 2020-0 [facility] omycin - [facility] 00:[facility]: [facility] 00 are [facility] Social History Social Habit Start Date Stop Date Quantity Comments Source Sex Assigned At Wilmer plata Nondenominational Medications Ordered Filled Start Stop Current Ordering Indication Dosage Frequency Signature Comments Components Source Medication Medication Date Date Medication? Clinician (SIG) Name Name vancomycin 2020-0 2020- No Diarrhea, 250mg Q.25D Take 1 [place] (VANCOCIN) 316 03-26 unspecified capsule Method[facility] 250 MG 00:00: 23:59 type ([address] capsule 00 :00 total) by mouth 4 (four) times a day for 10 days. Procedures Procedure Date / Time Performed Performing Clinician [facility] e GASTROINTESTINAL PANEL 2019-10-27 14:08:00 Reggie Berry on Nondenominational Francoise Espinosa Plan of Care Planned Activity Planned Date Details Comments Source Future Scheduled 2020-03-13 INFLUENZA VACCINE [place] Test 00:00:00 [code = INFLUENZA VACCINE] Future Scheduled 2009-11-23 BREAST CANCER [facility] Test 00:00:00 SCREENING [code = BREAST CANCER SCREENING] Future Scheduled 2009-11-23 COLONOSCOPY SCREENING [place] [employer] Test 00:00:00 [code = COLONOSCOPY SCREENING] Future Scheduled 2009-11-23 SHINGLES VACCINES [place] [employer] Test 00:00:00 (#1) [code = SHINGLES VACCINES (#1)] Future Scheduled 1980-11-23 Screening for [facility] Test 00:00:00 malignant neoplasm of cervix (procedure) [code = 568244948] Future Scheduled 1975 COVID-19 VACCINE (1 [place] [employer] Test 00:00:00 of 2) [code = COVID-19 VACCINE (1 of 2)] Encounters Start End Encounter Admission Attending Care Care Encounter Source Date/Time Date/Time Type Type Clinicians Facility Department ID 2019-10-27 2019-10-27 Outpatient [facility], [facility] [id number] [place] 00:00:00 00:00:[address] 2019-10-27 2019-10-27 Outpatient [facility] [id number] [place] 00:00:00 00:00:[address] Results Test Description Test Test Results Result Source Time Comments Comments Gastrointestinal 2019-10 Gastrointestinal [place] panel -16 panelNegative for all [facility] [...] Comment: Specimen InformationSpecimen Source: StoolSpecimen Site: Nonpreserved [facility] CBC W/AUTO DIFF 2019-10-22 04:23:00 Test Item [...] 0.03 x10 3/uL 0.0-0.20 N CBC W/AUTO [id number] 04:37:00 Test Item Value Reference Range Interpretation [...] 0.02 x10 3/uL 0.0-0.20 N CBC W/AUTO [id number] 00:56:00 Test Item Value Reference Range Interpretation [...] antibiotics if clinically unst able. COMPREHENSIVE METABOLIC [id number] 00:51:00 Test Item Value Reference Range Interpretation [...] N PHOSPHATASE (test code = ALKP) SURGICAL [id number] 12:07:00 RUN DATE: 10/16/19 [facility] - LAB PAGE 1 RUN TIME: 1207 Specimen Inquiry RUN USER: INTERFACE PATIENT: DELMI GARIBAY LOC: P.5N POD B U #: [id number] AGE/SX: 58/F ROOM: [facility] RE10/14/19REG DR: Daniel Unger MD : 58 BED: 1 DIS: STATUS: ADM IN TLOC: SPEC #: [id number] RECD: 10/14/19 STATUS: VIKAS REQ #: [id number] MIGUEL ANGEL: 10/14/[address]: Daniel Unger MD ENTERED: 10/14/19 SP TYPE: SURG [...] piece of colon demonstrate no significant lesions. Typing Bookkeeper sections are submitted as follows: A1, submucosal lipoma; A2, possible small polyps; A3-A4, diverticula; A5, automotive sales representative sections of large donut; A6, automotive sales representative sections CONTINUED ON NEXT PAGE RUN DATE: 10/16/19 [facility] - LAB PAGE 2 RUN TIME: 1207 Specimen Inquiry RUN USER: INTERFACE SPEC #: [id number] PATIENT: DELMI GARIBAY [place] #[id number] (Continued) GROSS DESCRIPTION (Continued) of small donut. RAB/eb MICROSCOPIC DESCRIPTION Microscopic performed. Signed SIGNATURE ON FILE Valerie Duncan MD 10/16/19 1207 END OF REPORT BASIC METABOLIC [id number] 05:47:00 Test Item Value Reference Range Interpretation [...] code 8.8 mg/dL 8.8-10.2 N = CA) [id number] 05:46:00 Test Item Value Reference Range Interpretation Comments MAGNESIUM (test code = MAG) 1.8 mg/dL 1.4-2.6 N CBC W/AUTO [id number] 05:41:00 Test Item Value Reference Range Interpretation [...] 0.03 x10 3/uL 0.0-0.20 N BASIC METABOLIC [id number] 06:26:00 Test Item Value Reference Range Interpretation [...] code 8.2 mg/dL 8.8-10.2 L = CA) [id number] 06:26:00 Test Item Value Reference Range Interpretation Comments MAGNESIUM (test code = MAG) 1.7 mg/dL 1.4-2.6 N CBC W/AUTO [id number] 05:58:00 Test Item Value Reference Range Interpretation [...] 0.02 x10 3/uL 0.0-0.20 N CBC W/AUTO [id number] 13:05:00 Test Item Value Reference Range Interpretation [...]
[2020-10-15 23:16] LABS: Absolute Lymphocytes (CBC) 1.1 K/uL (0.7-4.9); Basophils % 0.6 % (0-1.3); Hematocrit 38.7 % (36.0-45.0); Lymphocytes % 33.6 % (15.3-44.8); MPV 8.8 fL (7.6-11.3); RBC Red Blood Cell Count 4.15 M/uL (3.86-4.86)
[2020-10-15 23:22] LABS: Protime INR 0.93
[2020-10-15] MEDS ORDERED: NA CHLORIDE 0.9% 500 ML ONE (23:23)
[2020-10-15] MEDS ORDERED: METHYLPREDNISOLONE 40 MG INJ ONE (23:23)
[2020-10-15 23:32] LABS: ALT/SGPT 26 U/L (12-78); AST/SGOT 28 U/L (15-37); Albumin 3.6 g/dL (3.4-5.0); Alkaline Phosphatase 79 U/L (45-117); BUN Blood Urea Nitrogen 14 mg/dL (7-18); Bicarbonate 18 mmol/L (21-32); Bilirubin Direct < 0.1 mg/dL (0-0.2); Bilirubin Total 0.1 mg/dL (0.2-1.0); Glucose Level 93 mg/dL (74-106); Magnesium 2.1 mg/dL (1.8-2.4); NT PRO-BNP 59 pg/mL (<125); Potassium 3.7 mmol/L (3.5-5.1); Protein, Total 7.4 g/dL (6.4-8.2); Sodium Level 133 mmol/L (136-145); Troponin (Emerg Dept Use Only) < 0.02 ng/mL (0.0-0.045)
[2020-10-15] MEDS ORDERED: KETOROLAC 30 MG/ML INJ ONE (23:35)
[2020-10-15] MEDS ORDERED: METOCLOPRAMIDE 10 MG/2mL INJ ONE (23:37)
[2020-10-16 00:46] LABS: SARS-COV-2 RT PCR POSITIVE (NEGATIVE)
--- NOTE | 2020-10-16 01:06 | EDPHYS ---
Physician Documentation [facility] Name: Lucille Mortensen Age: 59 yrs Sex: Female : 1960 Arrival Date: 10/15/2020 Time: 22:49 Bed 5 Private MD: ED Physician Cabrera Hylton HPI: 10/15 23:00 This 59 yrs old Female presents to ER via EMS with complaints of Shortness of cp Breath. 23:00 The patient has shortness of breath at rest. Onset: The symptoms/episode began/occurred cp 4 day(s) ago. 23:00 Associated signs and symptoms: Pertinent positives: non-productive cough, headache, cp shortness of breath, Pertinent negatives: chest pain, fever, vomiting, abdominal pain. Historical: - Allergies: 22:58 Bactrim; mg2 22:58 Biaxin; mg2 22:58 Sulfa (Sulfonamide Antibiotics); mg2 - Home Meds: 22:58 Trazodone Oral [Active]; mg2 - PMHx: 22:58 Depression; Hypothyroidism; Rheumatoid Arthritis; Sleep Apnea; mg2 - PSHx: 22:58 Appendectomy; colorectal sx; mg2 - Immunization history:: Flu vaccine is up to date. . - Social history:: Smoking status: Patient denies any tobacco usage or history of. Patient/guardian denies using street drugs, IV drugs, Patient uses alcohol, occasionally. ROS: 23:08 Constitutional: Negative for fever, poor PO intake. cp 23:08 Eyes: Negative for injury, pain, redness, and discharge. cp 23:08 ENT: Negative for ear pain, sore throat, difficulty swallowing, difficulty handling secretions. 23:08 Neck: Negative for pain with movement, pain at rest, stiffness. 23:08 Cardiovascular: Negative for chest pain, edema. 23:08 Respiratory: Positive for cough, "sounds productive", shortness of breath, at rest. Negative for wheezing. 23:08 Abdomen/GI: Negative for abdominal pain, vomiting, diarrhea, constipation. 23:08 Back: Negative for pain at rest, pain with movement. 23:08 : Negative for urinary symptoms. 23:08 Skin: Negative for cellulitis, rash. 23:08 Neuro: Positive for headache, general weakness, Negative for altered mental status. 23:08 All other systems are negative. Exam: 22:55 ECG was reviewed by the Attending Physician. cp 23:11 Constitutional: The patient appears in no acute distress, alert, awake, cp non-diaphoretic, non-toxic, well developed, well nourished. 23:11 Head/Face: Normocephalic, atraumatic. cp 23:11 Eyes: Periorbital structures: appear normal, Conjunctiva: normal, no exudate, no injection, Sclera: no appreciated abnormality, Lids and lashes: appear normal, bilaterally. 23:11 ENT: External ear(s): are unremarkable, Nose: is normal, Mouth: Lips: moist, Oral mucosa: moist, Posterior pharynx: Airway: no evidence of obstruction, patent. 23:11 Neck: ROM/movement: is normal, is supple, without pain, no range of motions limitations, no meningismus. 23:11 Chest/axilla: Inspection: normal, Palpation: is normal, no crepitus, no tenderness. 23:11 Cardiovascular: Rate: normal, Rhythm: regular, Edema: is not appreciated, JVD: is not appreciated. 23:11 Respiratory: the patient does not display signs of respiratory distress, Respirations: labored breathing, is not present, shallow respirations, that is mild, Breath sounds: bronchial sounds, that are mild, are heard diffusely, decreased breath sounds, are not appreciated, stridor, is not appreciated, wheezing: is not appreciated. 23:11 Abdomen/GI: Inspection: abdomen appears normal, Palpation: abdomen is soft and non-tender, in all quadrants. 23:11 Back: pain, is absent, ROM is normal. Vital Signs: 22:55 BP 129 / 88; Pulse 78; Resp 20; Temp 99.5; Pulse Ox 100% on R/A; mg2 10/16 01:19 BP 125 / 80; Pulse 70; Resp 18; Temp 98.5; Pulse Ox 100% on R/A; mg2 MDM: 03 23:06 Patient medically screened. cp 23:35 Differential diagnosis: CHF exacerbation, Chronic Obstructive Pulmonary Disease cp pneumonia, Pneumothorax pulmonary edema, Pulmonary Embolism Sepsis Unstable Angina influenza, COVID-19. 10/16 01:03 Data reviewed: vital signs, nurses notes, lab test result(s), EKG, radiologic studies, cp plain films. 01:03 Test interpretation: by ED physician or midlevel provider: ECG, chest xray negative for cp focal pneumonia. Counseling: I had a detailed discussion with the patient and/or guardian regarding: the historical points, exam findings, and any diagnostic results supporting the discharge/admit diagnosis, lab results, radiology results, to return to the emergency department if symptoms worsen or persist or if there are any questions or concerns that arise at home. ED course: VSS. Patient informed COVID-19 test positive. Patient appears non-toxic and with no signs of respiratory distress. Oxygen sats 100% on room air. Will discharge to home for continued monitoring. Patient instructed to quarantine. 10/15 22:58 Order name: Basic Metabolic Panel cp 10/15 22:58 Order name: CBC with Diff cp 10/15 22:58 Order name: LFT's cp 10/15 22:58 Order name: Magnesium cp 10/15 22:58 Order name: NT PRO-BNP cp 10/15 22:58 Order name: PT-INR cp 10/15 22:58 Order name: Troponin (emerg Dept Use Only) cp 10/15 22:58 Order name: CRP cp 10/15 23:02 Order name: COVID-19 : Document "Date of Symptom Onset" if Symptomatic. cp 10/15 23:02 Order name: Influenza Screen (a \\T\\ B) cp 10/15 23:03 Order name: COVID-19 : Document "Date of Symptom Onset" if Symptomatic. [id number] 03 23:23 Order name: CBC with Automated Diff; Complete Time: 00:23 EDMS 10/16 00:23 Interpretation: Normal except: WBC 3.30; MN% 19.1. cp 10/15 23:24 Order name: Protime (+INR); Complete Time: 00:23 EDMS 10/15 23:32 Order name: Basic Metabolic Panel; Complete Time: 00:23 EDMS 10/16 00:23 Interpretation: Normal except: NA 133; CO2 18; GFR 50. cp 10/15 22:58 Order name: XRAY Chest (1 view) cp 10/15 23:32 Order name: Liver (Hepatic) Function; Complete Time: 00:23 EDMS 10/15 23:32 Order name: Troponin (Emerg Dept Use Only); Complete Time: 00:23 EDMS 10/15 23:32 Order name: NT PRO-BNP; Complete Time: 00:23 EDMS 10/15 23:32 Order name: C-Reactive Protein; Complete Time: 00:23 EDMS 10/16 00:23 Interpretation: Abnormal: C-REACTIVE PROT 4.70. cp 10/15 23:32 Order name: Magnesium; Complete Time: 00:23 EDMS 10/15 23:33 Order name: Influenza Screen (A EDMN 10/15 23:33 Order name: CORONAVIRUS EDMN 10/15 23:34 Order name: CORONAVIRUS EDMN 10/16 00:46 Order name: COVID-19/FLU A+B; Complete Time: 00:52 EDMS 10/15 22:58 Order name: EKG; Complete Time: 23:00 cp 10/15 22:58 Order name: Cardiac monitoring; Complete Time: 23:00 cp 10/15 22:58 Order name: EKG - Nurse/Tech; Complete Time: 23:00 cp 10/15 22:58 Order name: IV Saline Lock; Complete Time: 23:00 cp 10/15 22:58 Order name: Labs collected and sent; Complete Time: 23:00 cp 10/15 22:58 Order name: O2 Per Protocol; Complete Time: 23:00 cp 10/15 22:58 Order name: O2 Sat Monitoring; Complete Time: 23:00 cp 10/16 00:53 Order name: PO challenge; Complete Time: 01:10 cp EC/05 22:55 Rate is 72 beats/min. Rhythm is regular. IN interval is normal. QRS interval is normal. cp QT interval is normal. T waves are Inverted in leads aVL, aVR. Interpreted by me. Reviewed by me. Administered Medications: 23:01 Not Given (Physician Discretion): SOLU-Medrol 80 mg IVP once cp 23:14 Drug: NS 0.9% 500 ml Route: IV; Rate: bolus; Site: right antecubital; mg2 10/16 01:20 Follow up: Response: No adverse reaction; IV Status: Completed infusion; IV Intake: mg2 500ml 10/15 23:16 Not Given (Physician Discretion): Dexamethasone 10 mg IVP once; (not to exceed 40 mg) cp 23:21 Drug: SOLU-Medrol 80 mg Route: IVP; Site: right antecubital; mg2 10/16 01:20 Follow up: Response: No adverse reaction mg2 10/15 23:23 Drug: Reglan 10 mg Route: IVP; Site: right antecubital; mg2 10/16 01:20 Follow up: Response: No adverse reaction mg2 10/15 23:23 Drug: TORadol - Ketorolac 15 mg Route: IVP; Site: right antecubital; mg2 10/16 01:20 Follow up: Response: No adverse reaction mg2 Disposition: 03:15 Co-signature as Attending Physician, Cabrera Hylton MD. [email or web address] Disposition: 10/16/20 01:05 Discharged to Home. Impression: Other viral pneumonia - COVID-19, Headache. - Condition is Stable. - Discharge Instructions: COVID-19. - Prescriptions for ivermectin 3 mg Oral tablet - take 5 tablet by ORAL route every other day x2 doses; 10 tablet. Augmentin 875- 125 mg Oral Tablet - take 1 tablet by ORAL route every 12 hours for 10 days; 20 tablet. Prednisone 20 mg Oral Tablet - take 2 tablets by ORAL route once daily for 5 days then take 1 tablet daily for 5 days; 15 tablet. Albuterol Sulfate 90 mcg/actuation - inhale 1-2 puff by INHALATION route every 4-6 hours; 1 Inhaler. - Medication Reconciliation Form, Thank You Letter, Antibiotic Education, Prescription Opioid Use, Work release form form. - Follow up: Private Physician; When: 2 - 3 days; Reason: Worsening of condition. - Problem is new. - Symptoms have improved. Signatures: Dispatcher [employer] EDMS Britton Fleming PA PA cp Jorge Benitez RN RN [facility] Cabrera Hylton MD MD [email or web address] Corrections: (The following items were deleted from the chart) 01:10 01:05 10/16/2020 01:05 Discharged to Home. Impression: Other viral pneumonia - cp COVID-19. Condition is Stable. Forms are Medication Reconciliation Form, Thank You Letter, Antibiotic Education, Prescription Opioid Use. Follow up: Private Physician; When: 2 - 3 days; Reason: Worsening of condition. Problem is new. Symptoms have improved. cp 01:21 01:10 10/16/2020 01:05 Discharged to Home. Impression: Other viral pneumonia - mg2 COVID-19; Headache. Condition is Stable. Discharge Instructions: COVID-19. Prescriptions for ivermectin 3 mg Oral tablet - take 5 tablet by ORAL route every other day x2 doses; 10 tablet, Augmentin 875-125 mg Oral Tablet - take 1 tablet by ORAL route every 12 hours for 10 days; 20 tablet, Prednisone 20 mg Oral Tablet - take 2 tablets by ORAL route once daily for 5 days then take 1 tablet daily for 5 days; 15 tablet, Albuterol Sulfate 90 mcg/actuation - inhale 1-2 puff by INHALATION route every 4-6 hours; 1 Inhaler. and Forms are Medication Reconciliation Form, Thank You Letter, Antibiotic Education, Prescription Opioid Use. Follow up: Private Physician; When: 2 - 3 days; Reason: Worsening of condition. Problem is new. Symptoms have improved. cp
--- NOTE | 2020-10-16 01:06 | ER ---
Nurse's Notes [facility] Name: Lucille Mortensen Age: 59 yrs Sex: Female : 1960 Arrival Date: 10/15/2020 Time: 22:49 Bed 5 Private MD: Diagnosis: Other viral [id number];Headache Presentation: 10/15 22:50 Chief complaint: Chief complaint: EMS states: she has shortness of breath, dizziness, mg2 and generalized body weakness for 4 days. covid test done at [facility] yesterday and not yet resulted. 22:55 Coronavirus screen: Client denies travel out of the [place] in the last 14 days. Client mg2 presents with at least one sign or symptom that may indicate coronavirus-19. Standard/surgical mask placed on the client. Provider contacted for isolation considerations. Ebola Screen: No symptoms or risks identified at this time. Initial Sepsis Screen: Does the patient meet any 2 criteria? No. Patient's initial sepsis screen is negative. Does the patient have a suspected source of infection? No. Patient's initial sepsis screen is negative. Risk Assessment: Do you want to hurt yourself or someone else? Patient reports no desire to harm self or others. Onset of symptoms was October 12, 2020. 22:55 Method Of Arrival: EMS: [facility] mg2 22:55 Acuity: BARBER 3 mg2 Historical: - Allergies: 22:58 Bactrim; mg2 22:58 Biaxin; mg2 22:58 Sulfa (Sulfonamide Antibiotics); mg2 - Home Meds: 22:58 Trazodone Oral [Active]; mg2 - PMHx: 22:58 Depression; Hypothyroidism; Rheumatoid Arthritis; Sleep Apnea; mg2 - PSHx: 22:58 Appendectomy; colorectal sx; mg2 - Immunization history:: Flu vaccine is up to date. . - Social history:: Smoking status: Patient denies any tobacco usage or history of. Patient/guardian denies using street drugs, IV drugs, Patient uses alcohol, occasionally. Screenin:01 Abuse screen: Denies threats or abuse. Denies injuries from another. Nutritional mg2 screening: No deficits noted. Tuberculosis screening: No symptoms or risk factors identified. Fall Risk IV access (20 points). Assessment: 23:00 General: Appears in no apparent distress. comfortable, Behavior is calm, cooperative. mg2 Pain: Denies pain. Neuro: Level of Consciousness is awake, alert, obeys commands, Oriented to person, place, time, situation. Cardiovascular: Capillary refill < 3 seconds Patient's skin is warm and dry. Respiratory: Airway is patent Respiratory effort is even, unlabored, Respiratory pattern is regular, symmetrical. Respiratory: Reports shortness of breath cough that is. GI: No signs and/or symptoms were reported involving the gastrointestinal system. : No signs and/or symptoms were reported regarding the genitourinary system. EENT: No signs and/or symptoms were reported regarding the EENT system. Derm: Skin is intact, is healthy with good turgor, Skin is pink, warm \T\ dry. normal. Musculoskeletal: Circulation, motion, and sensation intact. Capillary refill < 3 seconds. 10/16 00:30 Reassessment: Patient appears in no apparent distress at this time. Patient and/or mg2 family updated on plan of care and expected duration. Pain level reassessed. Patient is alert, oriented x 3, equal unlabored respirations, skin warm/dry/pink. 01:19 Reassessment: po challenge tolerated. mg2 Vital Signs: 10/15 22:55 BP 129 / 88; Pulse 78; Resp 20; Temp 99.5; Pulse Ox 100% on R/A; mg2 03 01:19 BP 125 / 80; Pulse 70; Resp 18; Temp 98.5; Pulse Ox 100% on R/A; mg2 ED Course: 10/15 22:49 Patient arrived in ED. mg2 22:54 Jorge Benitez, FILI is Primary Nurse. mg2 22:57 Britton Fleming PA is PHCP. cp 22:57 Cabrera Hylton MD is Attending Physician. cp 22:57 Triage completed. mg2 22:59 Arm band placed on. mg2 23:01 No provider procedures requiring assistance completed. Inserted saline lock: 20 gauge mg2 in right antecubital area, using aseptic technique. Blood collected. by ASHLEE Kingsley Tech. 23:02 Patient has correct armband on for positive identification. Door closed. mg2 10/16 01:19 IV discontinued, intact, bleeding controlled, No redness/swelling at site. Pressure mg2 dressing applied. Administered Medications: 10/15 23:01 Not Given (Physician Discretion): SOLU-Medrol 80 mg IVP once cp 23:14 Drug: NS 0.9% 500 ml Route: IV; Rate: bolus; Site: right antecubital; mg2 10/16 01:20 Follow up: Response: No adverse reaction; IV Status: Completed infusion; IV Intake: mg2 500ml 10/15 23:16 Not Given (Physician Discretion): Dexamethasone 10 mg IVP once; (not to exceed 40 mg) cp 23:21 Drug: SOLU-Medrol 80 mg Route: IVP; Site: right antecubital; mg2 10/16 01:20 Follow up: Response: No adverse reaction mg2 10/15 23:23 Drug: Reglan 10 mg Route: IVP; Site: right antecubital; mg2 10/16 01:20 Follow up: Response: No adverse reaction mg2 10/15 23:23 Drug: TORadol - Ketorolac 15 mg Route: IVP; Site: right antecubital; mg2 10/16 01:20 Follow up: Response: No adverse reaction mg2 Intake: 01:20 IV: 500ml; Total: 500ml. mg2 Outcome: 01:05 Discharge ordered by . cp 01:19 Discharged to home ambulatory. mg2 01:19 Condition: stable 01:19 Discharge instructions given to patient, Instructed on discharge instructions, follow up and referral plans. Demonstrated understanding of instructions, follow-up care, medications, Prescriptions given X 4. 01:21 Patient left the ED. mg2 Signatures: Britton Fleming PA PA cp [place], Michele RN RN mg2 Corrections: (The following items were deleted from the chart) 10/15 22:57 22:50 Chief complaint: mg2 mg2
[2020-10-16 03:36] VITALS: O2SAT 100
[2020-10-16 03:39] VITALS: BP 125/80; TEMP 98.5
--- NOTE | 2020-10-16 07:59 | RAD REPORT ---
EXAM DESCRIPTION: RAD - Chest Single View - 10/15/2020 11:31 pm CLINICAL HISTORY: Cough;SOB COMPARISON: Portable July 2020 TECHNIQUE: AP portable chest image was obtained 10/15/2020 11:31 pm . FINDINGS: No focal mass or consolidation. Interstitial pattern is prominent but not substantially di fferent from comparison. Minimal edema or infiltrate is potentially masked in this setting. No signif icant failure or volume overload. Heart and vasculature are normal. No measurable pleural effusion an d no pneumothorax. No acute bony abnormality seen. No acute aortic findings suspected. IMPRESSION: Baseline prominent interstitial pattern could potentially mask mild interstitial edema o r infiltrate.
== END 2020-10-16 01:21 | disposition home or self-care (01) ==
LOC: ER 22:41
DX: U07.1 COVID-19 (principal); J12.82 Pneumonia due to coronavirus disease 2019; Z88.1 Allergy status to other antibiotic agents; Z88.2 Allergy status to sulfonamides; Z88.6 Allergy status to analgesic agent
CPT/HCPCS: 96361; 93005; 85025; 80048; 36415; 83735; 85610; 80076; 84484; 83880; 0240U; 86140; 71045; 96375; 96374; 99284; J2765; J7040; J2920